=== PATIENT | male | born 1950 | race American Indian/Alaskan Native ===

== ENCOUNTER 2017-12-05 16:22 | Inpatient (IN) | payer MEDICARE ==
[2017-12-05 17:17] LABS: Basophils % (Auto) 0.1 % (0.0-1.8); Hematocrit 40.7 % (35.5-45.6); Lymphocytes # (Auto) 0.7 K/mm3 (1.2-5.4); Mean Corpuscular HGB Conc 32 % (32-34); Mean Corpuscular Hemoglobin 30 pg (28-32); Mean Corpuscular Volume 94 fl (84-94); Monocytes # (Auto) 1.1 K/mm3 (0.0-0.8); Monocytes % (Auto) 15.7 % (0.0-7.3); Red Blood Count 4.35 M/mm3 (3.65-5.03); Red Cell Distribution Width 17.8 % (13.2-15.2)
[2017-12-05 17:22] LABS: Platelet Count 83 K/mm3 (140-440)
[2017-12-05 17:52] LABS: Calcium 9.6 mg/dL (8.4-10.2)
--- NOTE | 2017-12-05 18:38 | Emergency Department Report ---
HPI - General Chief Complaint: Medical Clearance Time Seen by Provider: 12/05/17 17:06 - HPI HPI: 67-year-old male presents to the emergency department via EMS from his [facility]p at [facility] with the need for dialysis access port. The patient was recently here to the [facility] for CHF, volume overload and worsening renal failure. Apparently he has a paid search marketing strategist in [facility] that he has not seen in a while and cannot currently remember their name. The recommendation from nephrology was that the patient should start having dialysis and until that time use aggressive diuresis with Lasix. The family says that the patient wanted to take some time and decide whether or not he wanted to pursue dialysis. However the patient was discharged yesterday but the family stepped in and convinced him that he should get dialyzed for management of his CHF and kidney failure. ED Past Medical Hx - Past Medical History Hx Hypertension: Yes Hx Congestive Heart Failure: Yes Hx Diabetes: No Hx Liver Disease: Yes (hepatitis) Hx Kidney Stones: Yes (CKD) Hx Asthma: No Hx COPD: No Additional medical history: defibrillator - Surgical History Hx Pacemaker: Yes (2016) Hx Internal Defibrillator: Yes (2016) - Social History Smoking Status: Never Smoker Substance Use Type: None - Medications Home Medications: Home Medications Medication Instructions Recorded Confirmed Last Taken Type Carvedilol 12.5 mg PO BID 11/28/17 12/05/17 Unknown History Metolazone [Zaroxolyn] 2.5 mg PO BID 11/28/17 12/05/17 Unknown History hydrALAZINE [Apresoline TAB] 50 mg PO Q8HR 11/28/17 12/05/17 Unknown History Lasix 40 mg PO BID #60 12/03/17 12/05/17 Unknown Rx Potassium Chloride 10 meq PO DAILY #20 tablet.er 12/03/17 12/05/17 Unknown Rx Warfarin [Coumadin] 6 mg PO DAILY@1700 #60 tablet 12/03/17 12/05/17 Unknown Rx ED Review of Systems ROS: Stated complaint: NEEDS DIALYSIS PORT PUT IN Other details as noted in HPI Comment: All other systems reviewed and negative Constitutional: denies: chills, fever Eyes: denies: eye pain, eye discharge, vision change ENT: denies: ear pain, throat pain Respiratory: shortness of breath. denies: cough Cardiovascular: edema. denies: chest pain Gastrointestinal: denies: abdominal pain, nausea, diarrhea Genitourinary: denies: urgency, dysuria Musculoskeletal: denies: back pain, joint swelling, arthralgia Skin: denies: rash, lesions Neurological: denies: headache, weakness, paresthesias Physical Exam - Physical Exam Vital Signs: Vital Signs 12/05/17 16:36 Temperature 98 F Pulse Rate 70 Respiratory 20 Rate Blood Pressure 134/85 O2 Sat by Pulse 99 Oximetry Physical Exam: GENERAL: The patient is well-developed well-nourished. HENT: Normocephalic. Atraumatic. Patient has moist mucous membranes. EYES: Extraocular motions are intact. NECK: Supple. Trachea is midline. CHEST/LUNGS: Coarse breath sounds. No tachypnea or accessory muscle use. There is no respiratory distress noted. HEART/CARDIOVASCULAR: Regular. There is no tachycardia. There is no murmur. ABDOMEN: Abdomen is soft, nontender. Patient has normal bowel sounds. SKIN: Skin is warm and dry. NEURO: The patient is awake, alert, and oriented. The patient is cooperative. The patient has no focal neurologic deficits. The patient has normal speech. MUSCULOSKELETAL: There is no tenderness or deformity. There is no evidence of acute injury. ED Course Vital Signs 12/05/17 16:36 Temperature 98 F Pulse Rate 70 Respiratory 20 Rate Blood Pressure 134/85 O2 Sat by Pulse 99 Oximetry - Consultations Consultation #1: 12/05/17 18:48 Spoke with the paid search marketing strategist on-call, Dr. Neri, who will see the patient as a consult for the patient's renal failure and uremia. I spoke with the vascular surgeon on-call, Dr. Donovan, who is reversing the patient's warfarin, starting a heparin drip, once the patient nothing by mouth after midnight, and will see the patient tomorrow for possible permacath placement. ED Medical Decision Making - Lab Data Result diagrams: 12/05/17 17:03 12/05/17 17:03 - Radiology Data Radiology results: image reviewed interpreted by me: Chest x-ray shows some moderate cardiomegaly. No pleural effusions, pneumonia or pneumothorax. - Medical Decision Making The patient has presented to the emergency department to get a dialysis port placed. He recently was here for about a week for CHF, volume overload, renal failure and initiating dialysis was the recommendation of the nephrology service at that time. Patient does appear to have some uremia and renal failure with a BUN/creatinine 100 and a creatinine of 4. Chest x-ray does not currently show any signs of significant volume overload and does not show any other acute process. Vital signs stable including being afebrile. Nephrology was contacted and will see the patient as a consult tomorrow. Vascular surgery was contacted and has placed some orders to prepare the patient for possible permacath placement tomorrow. The patient has been accepted for admission by the hospitalist, Dr. Aguayo. - Differential Diagnosis CHF, uremia, pneumonia Critical Care Time: No Critical care attestation.: If time is entered above; I have spent that time in minutes in the direct care of this critically ill patient, excluding procedure time. ED Disposition Clinical Impression: ESRD (end stage renal disease), Uremia, SOB (shortness of breath) Disposition: OP ADMIT IP TO THIS HOSP Is pt being admited?: Yes Condition: Fair Referrals: PRIMARY CARE, [Primary Care Provider] - 3-5 Days Time of Disposition: 19:15
--- NOTE | 2017-12-05 18:40 | Event Note ---
Date: 12/05/17 67 year old male CHF with EF 10% with ESRD on coumadin who presents for dialysis initiation. NPO after MN Vit K IV. Heparin drip initiated. INR in AM.
--- NOTE | 2017-12-05 18:41 | History and Physical Report ---
History of Present Illness Chief complaint: I need dialysis History of present illness: 67 YO Male SNF Resident at [facility] with HTN, Systolic /Diastolic CHF EF 10%, Hepatitis, presents to ED for evaluation. Pt states that he has experienced generalized swelling, and shortness of breath over the past 1 month for which he was prescribed lasix. Pt states that symptoms have gotten progressively worse over the past 1 week. Pt was seen and evaluated and found to be a candidate for dialysis but was undecided regarding pursuing dialysis. Pt has since made up his mind and elects to start dialysis. Pt seen and evaluated in ED and found to have ESRD as well as CHF decompensation. Pt denies fever, chills, CP, Palpitations, NVD, Syncope, Trauma, BRBPR, Unintentional weight loss, night sweats, bone pain, productive cough, recent ill contacts, or BRBPR. Pt admitted to telemetry. Nephrology consulted in ED. IR consulted for permacath placement. Cardiology consulted in ED. Past History Past Medical History: heart failure, hepatitis, hypertension, renal failure Past Surgical History: Other (ICD/Pacemaker Placement) Social history: . denies: smoking, alcohol abuse, prescription drug abuse Family history: hypertension Medications and Allergies Allergies Allergy/AdvReac Type Severity Reaction Status Date / Time No Known Allergies Allergy Verified 11/26/17 22:21 Home Medications Medication Instructions Recorded Confirmed Last Taken Type Carvedilol 12.5 mg PO BID 11/28/17 12/05/17 Unknown History Metolazone [Zaroxolyn] 2.5 mg PO BID 11/28/17 12/05/17 Unknown History hydrALAZINE [Apresoline TAB] 50 mg PO Q8HR 11/28/17 12/05/17 Unknown History Lasix 40 mg PO BID #60 12/03/17 12/05/17 Unknown Rx Potassium Chloride 10 meq PO DAILY #20 tablet.er 12/03/17 12/05/17 Unknown Rx Warfarin [Coumadin] 6 mg PO DAILY@1700 #60 tablet 12/03/17 12/05/17 Unknown Rx Active Meds: Active Medications Heparin Sodium/Sodium Chloride (Heparin/ 0.45% Nacl-25,000 Unit/500 Ml) 25,000 unit in 500 mls @ 23.541 mls/hr IV TITRATE AJAY; Protocol Phytonadione 10 mg/ Sodium (Chloride) 51 mls @ 100 mls/hr IV ONCE ONE Stop: 12/05/17 19:07 Review of Systems Constitutional: no weight loss, no weight gain, no fever, no chills Ears, nose, mouth and throat: no ear pain, no ear discharge, no tinnitis, no decreased hearing, no nose pain, no nasal congestion, no nasal discharge Cardiovascular: edema, shortness of breath, no chest pain, no orthopnea, no palpitations, no high blood pressure Respiratory: no cough, no cough with sputum, no excessive sputum, no hemoptysis Gastrointestinal: no abdominal pain, no nausea, no vomiting, no diarrhea, no constipation Genitourinary Male: no hematuria, no flank pain, no discharge, no urinary frequency, no urinary hesitancy Rectal: no pain, no incontinence, no bleeding Musculoskeletal: no neck stiffness, no neck pain, no shooting arm pain, no arm numbness/tingling, no low back pain, no shooting leg pain Integumentary: no rash, no pruritis, no redness, no sores, no wounds, no jaundice Neurological: no transient paralysis, no paralysis, no weakness, no parathesias , no numbness, no tingling, no seizures Psychiatric: no anxiety, no memory loss, no change in sleep habits, no sleep disturbances, no insomnia, no hypersomnia Endocrine: no cold intolerance, no heat intolerance, no polyphagia, no excessive thirst, no polydipsia, no polyuria, no nocturia Hematologic/Lymphatic: no easy bruising, no easy bleeding, no lymphadenopathy, no lymphedema Allergic/Immunologic: no urticaria, no allergic rhinitis, no wheezing, no persistent infections Exam - Constitutional Vitals: Temp Pulse Resp BP Pulse Ox 98 F 70 22 106/63 91 12/05/17 16:36 12/05/17 18:15 12/05/17 18:15 12/05/17 18:15 12/05/17 17:16 General appearance: Present: mild distress - EENT Eyes: Present: PERRL ENT: hearing intact, clear oral mucosa - Neck Neck: Present: supple, normal ROM - Respiratory Respiratory: bilateral: diminished, rhonchi - Cardiovascular Heart Sounds: Present: S1 & S2. Absent: rub, click - Extremities Extremities: pulses symmetrical, No edema Extremity abnormal: edema Peripheral Pulses: within normal limits - Abdominal General gastrointestinal: Present: soft, non-tender, non-distended, normal bowel sounds Male genitourinary: Present: normal - Integumentary Integumentary: Present: clear, warm, dry - Musculoskeletal Musculoskeletal: generalized weakness - Psychiatric Psychiatric: appropriate mood/affect, intact judgment & insight - Neurologic Neurologic: CNII-XII intact, moves all extremities Results - Labs CBC & Chem 7: 12/05/17 17:03 12/05/17 17:03 Labs: Abnormal lab results 12/05/17 12/05/17 Range/Units 17:03 17:03 RDW 17.8 H (13.2-15.2) % Plt Count 83 L (140-440) K/mm3 Lymph % (Auto) 10.0 L (13.4-35.0) % Wilkes % (Auto) 15.7 H (0.0-7.3) % Lymph # 0.7 L (1.2-5.4) K/mm3 Wilkes # 1.1 H (0.0-0.8) K/mm3 Seg Neutrophils % 74.2 H (40.0-70.0) % Chloride 90.6 L (98-107) mmol/L BUN 106 H (9-20) mg/dL Creatinine 4.0 H (0.8-1.5) mg/dL Assessment and Plan - Patient Problems (1) CHF (congestive heart failure) Current Visit: Yes Status: Acute Qualifiers: Heart failure type: combined systolic and diastolic Heart failure chronicity: acute on chronic Qualified Code(s): I50.43 - Acute on chronic combined systolic (congestive) and diastolic (congestive) heart failure Plan to address problem: Admit to telemetry, strict I/O, monitor UOP q shift, daily weight, diuresis, supplemental oxygen, Chest x ray, afterload reduction, cardiology consulted in ED, (2) ESRD (end stage renal disease) Current Visit: Yes Status: Acute Plan to address problem: Nephrology consulted in ED, dialysis as per renal team. (3) Respiratory failure Current Visit: Yes Status: Acute Qualifiers: Chronicity: acute Respiratory failure complication: hypoxia Qualified Code(s): J96.01 - Acute respiratory failure with hypoxia Plan to address problem: supplemental oxygen, nebulizer therapy, Chest X ray, NIPPV as clinically indicated, diuresis, (4) HTN (hypertension) Current Visit: No Status: Chronic Qualifiers: Hypertension type: essential hypertension Qualified Code(s): I10 - Essential (primary) hypertension Plan to address problem: monitor bp q shift, continue medical management. (5) DVT prophylaxis Current Visit: Yes Status: Acute Plan to address problem: SCD to ble while in bed.
[2017-12-05] MEDS ORDERED: TYLENOL PO PRN (18:44)
[2017-12-05] MEDS ORDERED: SODIUM CHLORIDE FLUSH SYRINGE 10 ML IV PRN (18:44)
[2017-12-05] MEDS ORDERED: PROVENTIL IH PRN (18:44)
[2017-12-05] MEDS ORDERED: ZOFRAN IV PRN (18:44)
[2017-12-05 18:57] LABS: INR 2.2 (0.87-1.13)
[2017-12-05 18:58] LABS: Partial Thromboplastin Time 39.8 Sec. (24.2-36.6)
[2017-12-05] MEDS ORDERED: VITAMIN K (ADULT ONLY) 10 MG in NACL 0.9% 50 ML IV ONE (19:37)
[2017-12-05] MEDS ORDERED: LASIX PO SCH (20:00)
--- NOTE | 2017-12-05 20:17 | XRay Report ---
FINAL REPORT PROCEDURE: XR CHEST 1V AP TECHNIQUE: Chest radiograph anteroposterior view. CPT 75851 HISTORY: SOB COMPARISON: 11/26/2017 FINDINGS: Heart: Moderate cardiomegaly is again noted. Mediastinum/Vessels: Normal. Lungs/Pleural space: Normal. Bony thorax: No acute osseous abnormality. Life support devices: A bipolar left-sided cardiac device is identified. IMPRESSION: Cardiomegaly No acute pulmonary process.
[2017-12-05] MEDS ORDERED: LASIX ONE (21:38)
[2017-12-05] MEDS ORDERED: NON-FORMULARY (Lasix 40 MG) PO SCH (22:00)
[2017-12-05] MEDS ORDERED: ZAROXOLYN PO SCH (22:00)
[2017-12-05] MEDS ORDERED: NON-FORMULARY (Carvedilol 12.5 MG) PO SCH (22:00)
[2017-12-05] MEDS: HEPARIN/ 0.45% NACL-25,000 UNIT/500 ML 25,000 UNIT/500 ML BAG IV SCH (22:23)
[2017-12-06 05:12] LABS: INR 1.76 (0.87-1.13)
[2017-12-06 05:19] LABS: Heparin anti-factor XA < 0.10 U.I./ml (0.3-0.7)
[2017-12-06] MEDS: SODIUM CHLORIDE FLUSH SYRINGE 10 ML IV SCH ×3 (05:23→21:36)
[2017-12-06] MEDS: APRESOLINE PO SCH ×4 (05:23→21:31)
[2017-12-06] MEDS: COREG PO SCH ×3 (05:23→21:32)
[2017-12-06] MEDS: LASIX IV SCH ×2 (05:54→17:35)
[2017-12-06] MEDS ORDERED: HEPARIN 10,000 UNITS/10 ML IV ONE (06:12)
[2017-12-06] MEDS ORDERED: NON-FORMULARY (Potassium Chloride [Potassium Chloride] 10 MEQ) PO SCH (10:00)
[2017-12-06] MEDS: K-DUR PO SCH (10:20)
[2017-12-06] MEDS ORDERED: VITAMIN K (ADULT ONLY) 10 MG in NACL 0.9% 50 ML IV ONE (11:00)
--- NOTE | 2017-12-06 11:01 | Progress Note ---
Assessment and Plan Impression: * End stage renal disease, new --24hr crcl 11ml/min --SPEP shows a small M spike; SIFE pending; C4 low * Uremia * Cardiomyopathy --TTE - EF 10 to 15% * Chronic systolic heart failure * LV thrombus on chronic anticoagulation * Hypertension * Hepatitis C * Thrombocytopenia Plan: * Recommended starting dialysis during prior admission but patient declined. He is now agreeable * No emergent need for dialysis today * Vascular surgery following * Reversal of INR w/ plans for permcath insertion on Friday; on heparin gtt * Hepatitis panel on November 27 * CM consulted for outpatient dialysis clinic placement * Strict I/O * Avoid nephrotoxins * Subjective Date of service: 12/06/17 Interval history: Mr. Sinclair is a 67yo gentleman with stage V CKD, systolic heart faiulre EF 10% recently hospitalized for SOB. He was diuresed with IV lasix. Initiation of dialysis was recommended but patient declined. He was discharged to home on Dec 04 - BUN 106/SCr 4.3 at that time He represented to the ED overnight as he has decided to start dialysis. Presently, Mr. Sinclair denies nausea, vomiting, diarrhea. Appetite is poor. He denies SOB presently. Objective - Vital Signs Vital signs: Vital Signs - 12hr 12/05/17 12/05/17 12/06/17 23:00 23:52 00:30 Temperature 98.6 F Pulse Rate 77 70 Respiratory 18 Rate Respiratory 18 Rate [Bilateral Foot] Blood Pressure 131/76 O2 Sat by Pulse 97 Oximetry 12/06/17 12/06/17 12/06/17 03:22 05:54 07:47 Temperature 98.9 F 98.5 F Pulse Rate 70 70 71 Respiratory 18 20 Rate Respiratory Rate [Bilateral Foot] Blood Pressure 130/80 130/80 124/87 O2 Sat by Pulse 97 99 Oximetry 12/06/17 12/06/17 12/06/17 08:23 10:15 10:20 Temperature Pulse Rate 76 Respiratory Rate Respiratory Rate [Bilateral Foot] Blood Pressure 124/87 O2 Sat by Pulse 98 99 Oximetry - General Appearance General appearance: well-developed, well-nourished, other (NAD - breathing comfortably on room air) EENT: ATNC Respiratory: Present: Decreased Breath Sounds Cardiology: regular, S1S2 Gastrointestinal: normal, no tenderness, no distended Integumentary: no rash, warm and dry Neurologic: other (alert, responds appropriately to questions) Musculoskeletal: other (+edema) Psychiatric: cooperative - Lab 12/05/17 17:03 12/05/17 17:03 Most recent lab results Calcium 9.6 mg/dL (8.4-10.2) 12/05/17 17:03
--- NOTE | 2017-12-06 12:52 | Consultation ---
History of Present Illness Consult reason: congestive heart failure History of present illness: 67-year-old male presents to the emergency department via EMS from his [facility] at [facility] with the need for dialysis access port. The patient was recently here to the [facility] for CHF, volume overload and worsening renal failure. Apparently he has a flask carrier in [facility] that he has not seen in a while and cannot currently remember their name. The recommendation from nephrology was that the patient should start having dialysis and until that time use aggressive diuresis with Lasix. The family says that the patient wanted to take some time and decide whether or not he wanted to pursue dialysis. However the patient was discharged yesterday but the family stepped in and convinced him that he should get dialyzed for management of his CHF and kidney failure. Patient was seen by our group last week of November 2017.Echo showed EF of 10-15% with apical thrombus. Past History Past Medical History: heart failure, hepatitis, hypertension, renal failure Past Surgical History: Other (ICD/Pacemaker Placement) Social history: . denies: smoking, alcohol abuse, prescription drug abuse Family history: hypertension Medications and Allergies Allergies Allergy/AdvReac Type Severity Reaction Status Date / Time No Known Allergies Allergy Verified 11/26/17 22:21 Home Medications Medication Instructions Recorded Confirmed Last Taken Type Carvedilol 12.5 mg PO BID 11/28/17 12/05/17 Unknown History Metolazone [Zaroxolyn] 2.5 mg PO BID 11/28/17 12/05/17 Unknown History hydrALAZINE [Apresoline TAB] 50 mg PO Q8HR 11/28/17 12/05/17 Unknown History Lasix 40 mg PO BID #60 12/03/17 12/05/17 Unknown Rx Potassium Chloride 10 meq PO DAILY #20 tablet.er 12/03/17 12/05/17 Unknown Rx Warfarin [Coumadin] 6 mg PO DAILY@1700 #60 tablet 12/03/17 12/05/17 Unknown Rx Active Meds: Active Medications Acetaminophen (Tylenol) 650 mg PO Q4H PRN PRN Reason: Pain MILD(1-3)/Fever >100.5/MORALES Albuterol (Proventil) 2.5 mg IH Q4HRT PRN PRN Reason: Shortness Of Breath Carvedilol (Coreg) 12.5 mg PO BID [facility] Last Admin: 12/06/17 10:20 Dose: 12.5 mg Furosemide (Lasix) 40 mg IV 0600,1800 [facility] Last Admin: 12/06/17 05:54 Dose: 40 mg Hydralazine HCl (Apresoline) 50 mg PO Q8HR [facility] Last Admin: 12/06/17 05:54 Dose: 50 mg Heparin Sodium/Sodium Chloride (Heparin/ 0.45% Nacl-25,000 Unit/500 Ml) 25,000 unit in 500 mls @ 20 mls/hr IV TITRATE [facility]; Protocol Last Titration: 12/06/17 06:20 Dose: 1,200 units/hr, 24 mls/hr Ondansetron HCl (Zofran) 4 mg IV Q8H PRN PRN Reason: Nausea And Vomiting Potassium Chloride (K-Dur) 10 meq PO QDAY [facility] Last Admin: 12/06/17 10:20 Dose: 10 meq Sodium Chloride (Sodium Chloride Flush Syringe 10 Ml) 10 ml IV PRN PRN PRN Reason: LINE FLUSH Sodium Chloride (Sodium Chloride Flush Syringe 10 Ml) 10 ml IV BID [facility] Last Admin: 12/06/17 10:21 Dose: Not Given Review of Systems Constitutional: fatigue, weakness Cardiovascular: edema, shortness of breath, dyspnea on exertion, no chest pain Gastrointestinal: no abdominal pain Physical Examination Vital Signs Temp Pulse Resp BP Pulse Ox 98 F 70 20 134/85 99 12/05/17 16:36 12/05/17 16:36 12/05/17 16:36 12/05/17 16:36 12/05/17 16:36 General appearance: no acute distress HEENT: Positive: PERRL, EOMI Cardiac: Positive: Reg Rate and Rhythm, S1/S2, S3 Lungs: Positive: Decreased Breath Sounds Neuro: Positive: Grossly Intact Extremities: Present: +1 Edema Results 12/05/17 17:03 12/05/17 17:03 Coagulation 12/05/17 12/06/17 Range/Units 18:38 04:05 PT 25.9 H 21.6 H (12.2-14.9) Sec. INR 2.20 H 1.76 H (0.87-1.13) APTT 39.8 H (24.2-36.6) Sec. CBC 12/05/17 Range/Units 17:03 WBC 6.9 (4.5-11.0) K/mm3 RBC 4.35 (3.65-5.03) M/mm3 Hgb 13.0 (11.8-15.2) gm/dl Hct 40.7 (35.5-45.6) % Plt Count 83 L (140-440) K/mm3 Lymph # 0.7 L (1.2-5.4) K/mm3 Sanders # 1.1 H (0.0-0.8) K/mm3 Eos # 0.0 (0.0-0.4) K/mm3 Baso # 0.0 (0.0-0.1) K/mm3 Comprehensive Metabolic Panel 12/05/17 Range/Units 17:03 Sodium 138 (137-145) mmol/L Potassium 4.3 (3.6-5.0) mmol/L Chloride 90.6 L (98-107) mmol/L Carbon Dioxide 28 (22-30) mmol/L BUN 106 H (9-20) mg/dL Creatinine 4.0 H (0.8-1.5) mg/dL Glucose 86 (75-100) mg/dL Calcium 9.6 (8.4-10.2) mg/dL - Imaging and Cardiology Echo: report reviewed Assessment and Plan Patient needs to have HD for fluid overload due to HFrEF. In the mean time IV diuretics. Patient had echo 10 days ago, no need to repeat. . - Patient Problems (1) CHF (congestive heart failure) Current Visit: Yes Status: Acute Qualifiers: Heart failure type: systolic Heart failure chronicity: acute on chronic Qualified Code(s): I50.23 - Acute on chronic systolic (congestive) heart failure (2) ESRD (end stage renal disease) Current Visit: Yes Status: Acute
--- NOTE | 2017-12-06 12:59 | Consultation ---
History of Present Illness - Reason for Consult Consult date: 12/06/17 Dialysis - History of Present Illness 67 YO Male SNF Resident at [facility] with HTN, Systolic /Diastolic CHF EF 10%, Hepatitis, presents to ED for evaluation. Pt states that he has experienced generalized swelling, and shortness of breath over the past 1 month for which he was prescribed lasix. Pt states that symptoms have gotten progressively worse over the past 1 week. Pt was seen and evaluated and found to be a candidate for dialysis but was undecided regarding pursuing dialysis. Pt has since made up his mind and elects to start dialysis. Pt seen and evaluated in ED and found to have ESRD as well as CHF decompensation. Pt denies fever, chills, CP, Palpitations, NVD, Syncope, Trauma, BRBPR, Unintentional weight loss, night sweats, bone pain, productive cough, recent ill contacts, or BRBPR. Pt admitted to telemetry. Nephrology consulted in ED. IR consulted for permacath placement. Cardiology consulted in ED. Patient reports she is not actively short of breath and is eating without any distress. Discussed with Dr. Neri and we believe the patient can have PermCath placement on Friday. Patient's INR is elevated due to chronic anticoagulation. Initiated heparin drip and provided vitamin K IV. INR still elevated, and therefore patient would benefit from placement on Friday. Past History Past Medical History: heart failure, hepatitis, hypertension, renal failure Past Surgical History: Other (ICD/Pacemaker Placement) Social history: . denies: smoking, alcohol abuse, prescription drug abuse Family history: hypertension Medications and Allergies Allergies Allergy/AdvReac Type Severity Reaction Status Date / Time No Known Allergies Allergy Verified 11/26/17 22:21 Home Medications Medication Instructions Recorded Confirmed Last Taken Type Carvedilol 12.5 mg PO BID 11/28/17 12/05/17 Unknown History Metolazone [Zaroxolyn] 2.5 mg PO BID 11/28/17 12/05/17 Unknown History hydrALAZINE [Apresoline TAB] 50 mg PO Q8HR 11/28/17 12/05/17 Unknown History Lasix 40 mg PO BID #60 12/03/17 12/05/17 Unknown Rx Potassium Chloride 10 meq PO DAILY #20 tablet.er 08/01/18 08/03/18 Unknown Rx Warfarin [Coumadin] 6 mg PO DAILY@1700 #60 tablet 12/03/17 12/05/17 Unknown Rx Active Meds: Active Medications Acetaminophen (Tylenol) 650 mg PO Q4H PRN PRN Reason: Pain MILD(1-3)/Fever >100.5/MORALES Albuterol (Proventil) 2.5 mg IH Q4HRT PRN PRN Reason: Shortness Of Breath Carvedilol (Coreg) 12.5 mg PO BID [facility] Last Admin: 12/06/17 10:20 Dose: 12.5 mg Furosemide (Lasix) 40 mg IV 0600,1800 [facility] Last Admin: 12/06/17 05:54 Dose: 40 mg Hydralazine HCl (Apresoline) 50 mg PO Q8HR [facility] Last Admin: 12/06/17 05:54 Dose: 50 mg Heparin Sodium/Sodium Chloride (Heparin/ 0.45% Nacl-25,000 Unit/500 Ml) 25,000 unit in 500 mls @ 20 mls/hr IV TITRATE [facility]; Protocol Last Titration: 12/06/17 06:20 Dose: 1,200 units/hr, 24 mls/hr Ondansetron HCl (Zofran) 4 mg IV Q8H PRN PRN Reason: Nausea And Vomiting Potassium Chloride (K-Dur) 10 meq PO QDAY [facility] Last Admin: 12/06/17 10:20 Dose: 10 meq Sodium Chloride (Sodium Chloride Flush Syringe 10 Ml) 10 ml IV PRN PRN PRN Reason: LINE FLUSH Sodium Chloride (Sodium Chloride Flush Syringe 10 Ml) 10 ml IV BID [facility] Last Admin: 12/06/17 10:21 Dose: Not Given Review of Systems All systems: negative (see HPI) Exam - Constitutional Vitals: Temp Pulse Resp BP Pulse Ox 98.5 F 76 20 124/87 99 12/06/17 07:47 12/06/17 10:20 12/06/17 07:47 12/06/17 10:20 12/06/17 10:15 General appearance: Present: no acute distress - EENT Eyes: Present: EOM intact ENT: hearing intact - Respiratory Respiratory effort: normal - Psychiatric Psychiatric: appropriate mood/affect, cooperative Results - Labs CBC & Chem 7: 12/05/17 17:03 12/05/17 17:03 Labs: Abnormal lab results 12/05/17 12/05/17 12/05/17 Range/Units 17:03 17:03 18:38 RDW 17.8 H (13.2-15.2) % Plt Count 83 L (140-440) K/mm3 Lymph % (Auto) 10.0 L (13.4-35.0) % [place] % (Auto) 15.7 H (0.0-7.3) % Lymph # 0.7 L (1.2-5.4) K/mm3 [place] # 1.1 H (0.0-0.8) K/mm3 Seg Neutrophils % 74.2 H (40.0-70.0) % PT 25.9 H (12.2-14.9) Sec. INR 2.20 H (0.87-1.13) APTT 39.8 H (24.2-36.6) Sec. Heparin Anti-Xa Level (0.3-0.7) U.I./ml Chloride 90.6 L (98-107) mmol/L BUN 106 H (9-20) mg/dL Creatinine 4.0 H (0.8-1.5) mg/dL POC Glucose (70-105) 12/05/17 12/06/17 Range/Units 22:30 04:05 RDW (13.2-15.2) % Plt Count (140-440) K/mm3 Lymph % (Auto) (13.4-35.0) % [place] % (Auto) (0.0-7.3) % Lymph # (1.2-5.4) K/mm3 [place] # (0.0-0.8) K/mm3 Seg Neutrophils % (40.0-70.0) % PT 21.6 H (12.2-14.9) Sec. INR 1.76 H (0.87-1.13) APTT (24.2-36.6) Sec. Heparin Anti-Xa Level < 0.10 L (0.3-0.7) U.I./ml Chloride (98-107) mmol/L BUN (9-20) mg/dL Creatinine (0.8-1.5) mg/dL POC Glucose 138 H (70-105) Assessment and Plan 67-year-old male with multiple medical issues including congestive heart failure , liver disease, and end-stage renal disease. Previously he has declined hemodialysis. He now wishes to have hemodialysis. Was provided IV vitamin K and started on heparin drip. INR still greater than 1.5. Provided another dose of vitamin K. Discussed catheter placement with patient. Patient understands. Patient patient nothing by mouth for placement on Friday. Restore diet.
--- NOTE | 2017-12-06 14:12 | Progress Note ---
Assessment and Plan Assessment and plan: Uremia due to ESRD ESRD To start dialysis Vasc surgery consulted for dialysis catheter placement. Nephrology following. Acute on chronic Systolic CHF cardiomyopathy s/p AICD placement History of left ventricular thrombus on anticoagulation with Coumadin. On Heparin drip since INR<2 Hepatitis Thrombocytopenia Full code status History Interval history: Shortness of breath Hospitalist Physical - Physical exam Narrative exam: Gen:Not in acute distress, HEENT:Normocephalic atraumatic, Neck: Supple, no JVD Lungs:clear to auscultation bilaterally, no rhonchi, no wheeze Heart:S1 and S2 reg, no murmurs, rubs or gallop Abd: Soft, non tender, non distended, normal bowel sounds Ext: No edema, clubbing or cyanosis Neuro:Awake,alert,oriented x 3, no focal signs Psych:normal mood - Constitutional Vitals: Temp Pulse Resp BP Pulse Ox 98.5 F 76 20 124/87 99 12/06/17 07:47 12/06/17 10:20 12/06/17 07:47 12/06/17 10:20 12/06/17 10:15 Results - Labs CBC & Chem 7: 12/05/17 17:03 12/05/17 17:03 Labs: Laboratory Last Values WBC 6.9 K/mm3 (4.5-11.0) 12/05/17 17:03 RBC 4.35 M/mm3 (3.65-5.03) 12/05/17 17:03 Hgb 13.0 gm/dl (11.8-15.2) 12/05/17 17:03 Hct 40.7 % (35.5-45.6) 12/05/17 17:03 MCV 94 fl (84-94) 12/05/17 17:03 MCH 30 pg (28-32) 12/05/17 17:03 MCHC 32 % (32-34) 12/05/17 17:03 RDW 17.8 % (13.2-15.2) H 12/05/17 17:03 Plt Count 83 K/mm3 (140-440) L 12/05/17 17:03 Lymph % (Auto) 10.0 % (13.4-35.0) L 12/05/17 17:03 [place] % (Auto) 15.7 % (0.0-7.3) H 12/05/17 17:03 Eos % (Auto) 0.0 % (0.0-4.3) 12/05/17 17:03 Baso % (Auto) 0.1 % (0.0-1.8) 12/05/17 17:03 Lymph # 0.7 K/mm3 (1.2-5.4) L 12/05/17 17:03 [place] # 1.1 K/mm3 (0.0-0.8) H 12/05/17 17:03 Eos # 0.0 K/mm3 (0.0-0.4) 12/05/17 17:03 Baso # 0.0 K/mm3 (0.0-0.1) 12/05/17 17:03 Seg Neutrophils % 74.2 % (40.0-70.0) H 12/05/17 17:03 Seg Neutrophils # 5.1 K/mm3 (1.8-7.7) 12/05/17 17:03 PT 21.6 Sec. (12.2-14.9) H 12/06/17 04:05 INR 1.76 (0.87-1.13) H 12/06/17 04:05 APTT 39.8 Sec. (24.2-36.6) H 12/05/17 18:38 Heparin Anti-Xa Level < 0.10 U.I./ml (0.3-0.7) L 12/06/17 04:05 Sodium 138 mmol/L (137-145) 12/05/17 17:03 Potassium 4.3 mmol/L (3.6-5.0) 12/05/17 17:03 Chloride 90.6 mmol/L (98-107) L 12/05/17 17:03 Carbon Dioxide 28 mmol/L (22-30) 12/05/17 17:03 Anion Gap 24 mmol/L 12/05/17 17:03 BUN 106 mg/dL (9-20) H 12/05/17 17:03 Creatinine 4.0 mg/dL (0.8-1.5) H 12/05/17 17:03 Estimated GFR 18 ml/min 12/05/17 17:03 BUN/Creatinine Ratio 27 % 12/05/17 17:03 Glucose 86 mg/dL (75-100) 12/05/17 17:03 POC Glucose 73 (70-105) 12/06/17 11:59 Calcium 9.6 mg/dL (8.4-10.2) 12/05/17 17:03
[2017-12-06] MEDS: HEPARIN/ 0.45% NACL-25,000 UNIT/500 ML 25,000 UNIT/500 ML BAG IV SCH ×2 (15:25→17:36)
[2017-12-06] MEDS ORDERED: COUMADIN PO SCH (17:00)
[2017-12-06] MEDS: MIRALAX 3350 PO PRN (17:35)
[2017-12-07] MEDS: LASIX IV SCH ×2 (06:23→17:21)
[2017-12-07] MEDS: APRESOLINE PO SCH ×3 (06:23→21:45)
[2017-12-07 07:51] LABS: Hematocrit 34.9 % (35.5-45.6); Hemoglobin 11.5 gm/dl (11.8-15.2); Mean Corpuscular HGB Conc 33 % (32-34); Mean Corpuscular Hemoglobin 30 pg (28-32); Mean Corpuscular Volume 91 fl (84-94); Platelet Count 103 K/mm3 (140-440); Red Blood Count 3.82 M/mm3 (3.65-5.03); Red Cell Distribution Width 17.4 % (13.2-15.2)
[2017-12-07 07:58] LABS: INR 1.49 (0.87-1.13)
[2017-12-07 07:59] LABS: Heparin anti-factor XA 0.15 U.I./ml (0.3-0.7)
[2017-12-07] MEDS: HEPARIN/ 0.45% NACL-25,000 UNIT/500 ML 25,000 UNIT/500 ML BAG IV SCH ×3 (08:21→15:48)
[2017-12-07] MEDS: COREG PO SCH ×2 (09:24→21:45)
[2017-12-07] MEDS: K-DUR PO SCH (09:25)
[2017-12-07] MEDS: SODIUM CHLORIDE FLUSH SYRINGE 10 ML IV SCH ×2 (09:26→21:46)
[2017-12-07] MEDS ORDERED: NACL 0.9% 100 ML IV PRN (10:50)
--- NOTE | 2017-12-07 10:53 | Progress Note ---
Assessment and Plan Impression: * End stage renal disease, new --24hr crcl 11ml/min --SPEP shows a small M spike; SIFE pending; C4 low * Uremia * Cardiomyopathy --TTE - EF 10 to 15% * Chronic systolic heart failure * LV thrombus on chronic anticoagulation * Hypertension * Hepatitis C * Thrombocytopenia Plan: * Permcath placement tomorrow * Hemodialysis to follow * Reversal of INR per vascular surgery; on heparin gtt * Hepatitis panel on November 27 * CM consulted for outpatient dialysis clinic placement * Renal diet * Strict I/O * Avoid nephrotoxins * Subjective Date of service: 12/07/17 Interval history: Appetite is poor. Denies SOB. Objective - Vital Signs Vital signs: Vital Signs - 12hr 12/07/17 12/07/17 12/07/17 00:25 04:54 06:23 Temperature 98.0 F 97.6 F Pulse Rate 70 69 69 Pulse Rate [ Apical] Respiratory 20 20 Rate Blood Pressure 94/48 98/59 98/59 O2 Sat by Pulse 96 92 Oximetry 12/07/17 12/07/17 12/07/17 07:54 09:24 10:00 Temperature 98.3 F Pulse Rate 69 78 Pulse Rate [ 93 H Apical] Respiratory 16 17 Rate Blood Pressure 132/78 132/78 O2 Sat by Pulse 100 Oximetry - General Appearance General appearance: well-developed, well-nourished EENT: ATNC Respiratory: Present: Decreased Breath Sounds Cardiology: regular, S1S2 Gastrointestinal: normal, no tenderness, no distended Integumentary: warm and dry Neurologic: no focal deficit, alert and oriented x3 Musculoskeletal: other (+edema) Psychiatric: cooperative - Lab 12/07/17 06:27 12/07/17 06:27 Most recent lab results Calcium 9.0 mg/dL (8.4-10.2) 12/07/17 06:27
--- NOTE | 2017-12-07 11:23 | Progress Note ---
Assessment and Plan - Patient Problems (1) CHF (congestive heart failure) Current Visit: Yes Status: Acute Qualifiers: Heart failure type: systolic Heart failure chronicity: acute on chronic Qualified Code(s): I50.23 - Acute on chronic systolic (congestive) heart failure (2) ESRD (end stage renal disease) Current Visit: Yes Status: Acute Plan to address problem: Waiting for vascath for HD. Subjective Date of service: 12/07/17 Interval history: No chest pains or short of breath . In bed mostly. Objective Vital Signs Temp Pulse Pulse Resp Resp BP Pulse Ox 12/07/17 10:00 93 H 17 12/07/17 09:24 78 132/78 12/07/17 07:54 98.3 F 69 16 132/78 100 12/07/17 06:23 69 98/59 12/07/17 04:54 97.6 F 69 20 98/59 92 12/07/17 00:25 98.0 F 70 20 94/48 96 12/06/17 22:00 112 H 100 H 18 12/06/17 21:32 74 117/70 12/06/17 21:31 74 117/70 12/06/17 20:39 18 12/06/17 20:19 98.3 F 74 20 117/70 98 12/06/17 11:51 98.0 F 69 18 128/79 97 - Physical Examination HEENT: Positive: PERRL, EOMI Cardiac: Positive: Regular Rate, S3 Lungs: Positive: Decreased Breath Sounds Neuro: Positive: Grossly Intact Extremities: Present: +1 Edema - Labs and Meds Coagulation 12/07/17 Range/Units 06:27 PT 18.9 H (12.2-14.9) Sec. INR 1.49 H (0.87-1.13) CBC 12/07/17 Range/Units 06:27 WBC 6.6 (4.5-11.0) K/mm3 RBC 3.82 (3.65-5.03) M/mm3 Hgb 11.5 L (11.8-15.2) gm/dl Hct 34.9 L (35.5-45.6) % Plt Count 103 L (140-440) K/mm3 Comprehensive Metabolic Panel 12/07/17 Range/Units 06:27 Sodium 140 (137-145) mmol/L Potassium 4.0 (3.6-5.0) mmol/L Chloride 90.9 L (98-107) mmol/L Carbon Dioxide 27 (22-30) mmol/L BUN 106 H (9-20) mg/dL Creatinine 3.7 H (0.8-1.5) mg/dL Glucose 79 (75-100) mg/dL Calcium 9.0 (8.4-10.2) mg/dL - Imaging and Cardiology Echo: report reviewed - Telemetry EKG Rhythm: Paced
--- NOTE | 2017-12-07 12:21 | Progress Note ---
Assessment and Plan Assessment and plan: Uremia due to ESRD ESRD To start dialysis Vasc surgery consulted for dialysis catheter placement. For Permacath tomorrow Nephrology following. Acute on chronic Systolic CHF cardiomyopathy s/p AICD placement History of left ventricular thrombus on anticoagulation with Coumadin. On Heparin drip since INR<2 Hepatitis Thrombocytopenia Full code status History Interval history: Shortness of breath, No chest pain Hospitalist Physical - Physical exam Narrative exam: Gen:Not in acute distress, HEENT:Normocephalic atraumatic, Neck: Supple, no JVD Lungs:clear to auscultation bilaterally, no rhonchi, no wheeze Heart:S1 and S2 reg, no murmurs, rubs or gallop Abd: Soft, non tender, non distended, normal bowel sounds Ext: No edema, clubbing or cyanosis Neuro:Awake,alert,oriented x 3, no focal signs Psych:normal mood - Constitutional Vitals: Temp Pulse Resp BP Pulse Ox 98.3 F 93 H 17 132/78 100 12/07/17 07:54 12/07/17 10:00 12/07/17 10:00 12/07/17 09:24 12/07/17 07:54 Results - Labs CBC & Chem 7: 12/07/17 06:27 12/07/17 06:27 Labs: Laboratory Last Values WBC 6.6 K/mm3 (4.5-11.0) 12/07/17 06:27 RBC 3.82 M/mm3 (3.65-5.03) 12/07/17 06:27 Hgb 11.5 gm/dl (11.8-15.2) L 12/07/17 06:27 Hct 34.9 % (35.5-45.6) L 12/07/17 06:27 MCV 91 fl (84-94) 12/07/17 06:27 MCH 30 pg (28-32) 12/07/17 06:27 MCHC 33 % (32-34) 12/07/17 06:27 RDW 17.4 % (13.2-15.2) H 12/07/17 06:27 Plt Count 103 K/mm3 (140-440) L 12/07/17 06:27 Lymph % (Auto) 10.0 % (13.4-35.0) L 12/05/17 17:03 [place] % (Auto) 15.7 % (0.0-7.3) H 12/05/17 17:03 Eos % (Auto) 0.0 % (0.0-4.3) 12/05/17 17:03 Baso % (Auto) 0.1 % (0.0-1.8) 12/05/17 17:03 Lymph # 0.7 K/mm3 (1.2-5.4) L 12/05/17 17:03 [place] # 1.1 K/mm3 (0.0-0.8) H 12/05/17 17:03 Eos # 0.0 K/mm3 (0.0-0.4) 12/05/17 17:03 Baso # 0.0 K/mm3 (0.0-0.1) 12/05/17 17:03 Seg Neutrophils % 74.2 % (40.0-70.0) H 12/05/17 17:03 Seg Neutrophils # 5.1 K/mm3 (1.8-7.7) 12/05/17 17:03 PT 18.9 Sec. (12.2-14.9) H 12/07/17 06:27 INR 1.49 (0.87-1.13) H 12/07/17 06:27 APTT 39.8 Sec. (24.2-36.6) H 12/05/17 18:38 Heparin Anti-Xa Level 0.15 U.I./ml (0.3-0.7) L 12/07/17 06:27 Sodium 140 mmol/L (137-145) 12/07/17 06:27 Potassium 4.0 mmol/L (3.6-5.0) 12/07/17 06:27 Chloride 90.9 mmol/L (98-107) L 12/07/17 06:27 Carbon Dioxide 27 mmol/L (22-30) 12/07/17 06:27 Anion Gap 26 mmol/L 12/07/17 06:27 BUN 106 mg/dL (9-20) H 12/07/17 06:27 Creatinine 3.7 mg/dL (0.8-1.5) H 12/07/17 06:27 Estimated GFR 20 ml/min 12/07/17 06:27 BUN/Creatinine Ratio 29 % 12/07/17 06:27 Glucose 79 mg/dL (75-100) 12/07/17 06:27 POC Glucose 81 (70-105) 12/07/17 07:10 Calcium 9.0 mg/dL (8.4-10.2) 12/07/17 06:27
--- NOTE | 2017-12-07 12:22 | Event Note ---
Date: 12/07/17 Reviewed labs. INR less than 1.5 Plan for permcath tomorrow. NPO after MN.
[2017-12-08] MEDS: HEPARIN/ 0.45% NACL-25,000 UNIT/500 ML 25,000 UNIT/500 ML BAG IV SCH ×3 (04:28→21:46)
[2017-12-08] MEDS: APRESOLINE PO SCH ×3 (06:26→21:46)
[2017-12-08] MEDS: LASIX IV SCH ×2 (06:26→17:27)
[2017-12-08 07:41] LABS: Hematocrit 36.6 % (35.5-45.6); Hemoglobin 11.7 gm/dl (11.8-15.2); Mean Corpuscular HGB Conc 32 % (32-34); Mean Corpuscular Hemoglobin 30 pg (28-32); Mean Corpuscular Volume 92 fl (84-94); Platelet Count 128 K/mm3 (140-440); Red Blood Count 3.96 M/mm3 (3.65-5.03); Red Cell Distribution Width 17.9 % (13.2-15.2)
[2017-12-08 07:51] LABS: Calcium 9.1 mg/dL (8.4-10.2)
[2017-12-08 07:52] LABS: INR 1.59 (0.87-1.13)
[2017-12-08] MEDS ORDERED: HEPARIN 10,000 UNITS/10 ML ONE (10:13)
[2017-12-08] MEDS ORDERED: HEPARIN/NS 5000 UNIT/500ML(CATH LAB) 500 ML IR ONE (10:13)
[2017-12-08] MEDS ORDERED: VERSED ONE (10:13)
[2017-12-08] MEDS ORDERED: SUBLIMAZE ONE (10:13)
[2017-12-08] MEDS ORDERED: ANCEF/STERILE WATER 2 GM/20 ML 2 GM/20 ML SYRINGE IV ONE (10:14)
[2017-12-08] MEDS ORDERED: XYLOCAINE 2% INFILTRATI ONE (10:14)
[2017-12-08] MEDS ORDERED: NACL 0.9% 250ML 250 ML ONE (10:15)
--- NOTE | 2017-12-08 10:44 | Progress Note ---
Assessment and Plan Impression: * End stage renal disease, new --24hr crcl 11ml/min --SPEP shows a small M spike; SIFE pending; C4 low * Uremia * Cardiomyopathy --TTE - EF 10 to 15% * Chronic systolic heart failure * LV thrombus on chronic anticoagulation * Hypertension * Hepatitis C * Thrombocytopenia Plan: * s/p Permcath placement * Hemodialysis today, and daily for next 3 days then q MWF * Reversal of INR per vascular surgery; on heparin gtt * CM consulted for outpatient dialysis clinic placement * Renal diet * Strict I/O * Avoid nephrotoxins Subjective Date of service: 12/08/17 Principal diagnosis: esrd Interval history: resting well in bed today Objective - Exam Narrative Exam: General appearance: well-developed, well-nourished EENT: ATNC Respiratory: Present: Decreased Breath Sounds Cardiology: regular, S1S2 Gastrointestinal: normal, no tenderness, no distended Integumentary: warm and dry Neurologic: no focal deficit, alert and oriented x3 Musculoskeletal: other (+edema) Psychiatric: cooperative - Vital Signs Vital signs: Vital Signs - 12hr 12/07/17 12/08/17 12/08/17 23:38 05:37 07:26 Temperature 98.2 F 98.1 F 98.4 F Pulse Rate 71 71 61 Respiratory 20 20 18 Rate Blood Pressure 105/59 111/63 133/70 O2 Sat by Pulse 95 93 98 Oximetry - Lab 12/08/17 07:13 12/08/17 07:13 Most recent lab results Calcium 9.1 mg/dL (8.4-10.2) 12/08/17 07:13
--- NOTE | 2017-12-08 12:21 | Operative Report ---
Operative Report Operative Report: Exam: Ultrasound and fluoroscopic guided placement of tunneled hemodialysis catheter Clinical indication: Patient with end-stage renal disease requiring dialysis access Date: 12/08/2017 Procedure: Following an explanation of the risks, benefits and alternatives; written informed consent was obtained. The patient was brought to the angiographic suite and placed in supine position on the examination table. Ultrasound evaluation of the neck demonstrated an enlarged right internal jugular vein. The patient's right neck and chest wall were prepped and draped in usual sterile fashion. 1% lidocaine was used for anesthesia. Under ultrasound guidance, the right internal jugular vein was cannulated with a 7 cm 18-gauge needle. A 0.035 guidewire was advanced centrally. The needle was removed and a 4 Mongolian vertebral catheter advanced over the guidewire. Together the guidewire and catheter were manipulated into the IVC to document intravenous positioning and for anchoring. An appropriate catheter exit site was chosen along the lateral right chest wall. 1% lidocaine was used for anesthesia at the catheter exit site and along the tunnel tract. A Bard 23 cm glidepath tunneled hemodialysis catheter was then tunneled antegrade from the catheter exit site to the venotomy site. Following serial dilation over the guidewire under fluoroscopy, a 15 Mongolian peel -away sheath was placed over the guidewire under fluoroscopy. The trocar and guidewire were removed and the catheter advanced through the sheath. There appears to be some degree of stenosis within the distal SVC and the catheter would not advance passes stenosis. The guidewire and plastic stiffener were then advanced through the dialysis catheter. The guidewire was then advanced more distally allowing the catheter to track over the guidewire into the proximal right atrium. The guidewire and stiffener were removed. Both ports flushed and aspirated easily and were then locked with appropriate volumes of heparin. The venotomy was closed using 4-0 Vicryl suture and Dermabond. Dermabond was also applied to the catheter exit site. The patient tolerated the procedure well. There were no immediate post procedure complications. Conscious sedation was performed under the guidance of radiologic nursing. Continuous cardiopulmonary monitoring was utilized. Impression: 1) Ultrasound and fluoroscopic guided placement of tunneled hemodialysis catheter via the right internal jugular vein. 2) Patient has an indwelling left chest wall pacemaker. Would suspect that the patient has occluded his left internal jugular vein and innominate vein given the size of the right internal jugular vein.
--- NOTE | 2017-12-08 13:41 | Progress Note ---
Assessment and Plan Assessment and plan: Uremia due to ESRD ESRD To start dialysis Vasc surgery placed for dialysis catheter today To start dialysis today Nephrology following. Acute on chronic Systolic CHF cardiomyopathy s/p AICD placement History of left ventricular thrombus on anticoagulation with Coumadin. On Heparin drip since INR<2 Hepatitis Thrombocytopenia Acute gouty arthritis 1st toe. Start Allopurinol 100mg daily. Cannot give NSAID or Colchicine because of Renal function X Ray right foot Full code status History Interval history: Shortness of breath, No chest pain pain right big toe Hospitalist Physical - Physical exam Narrative exam: Gen: Not in acute distress, HEENT:Normocephalic atraumatic, Neck: Supple, no JVD Lungs:clear to auscultation bilaterally, no rhonchi, no wheeze Heart:S1 and S2 reg, no murmurs, rubs or gallop Abd: Soft, non tender, non distended, normal bowel sounds Ext: No clubbing or cyanosis, right 1st toe tender, swollen right foot Neuro:Awake,alert,oriented x 3, no focal signs Psych:normal mood - Constitutional Vitals: Temp Pulse Resp BP Pulse Ox 98.3 F 67 16 115/73 99 12/08/17 11:52 12/08/17 11:52 12/08/17 11:52 12/08/17 11:52 12/08/17 11:52 General appearance: Present: no acute distress Results - Labs CBC & Chem 7: 12/08/17 07:13 12/08/17 07:13 Labs: Laboratory Last Values WBC 6.4 K/mm3 (4.5-11.0) 12/08/17 07:13 RBC 3.96 M/mm3 (3.65-5.03) 12/08/17 07:13 Hgb 11.7 gm/dl (11.8-15.2) L 12/08/17 07:13 Hct 36.6 % (35.5-45.6) 12/08/17 07:13 MCV 92 fl (84-94) 12/08/17 07:13 MCH 30 pg (28-32) 12/08/17 07:13 MCHC 32 % (32-34) 12/08/17 07:13 RDW 17.9 % (13.2-15.2) H 12/08/17 07:13 Plt Count 128 K/mm3 (140-440) L 12/08/17 07:13 Lymph % (Auto) 10.0 % (13.4-35.0) L 12/05/17 17:03 [place] % (Auto) 15.7 % (0.0-7.3) H 12/05/17 17:03 Eos % (Auto) 0.0 % (0.0-4.3) 12/05/17 17:03 Baso % (Auto) 0.1 % (0.0-1.8) 12/05/17 17:03 Lymph # 0.7 K/mm3 (1.2-5.4) L 12/05/17 17:03 [place] # 1.1 K/mm3 (0.0-0.8) H 12/05/17 17:03 Eos # 0.0 K/mm3 (0.0-0.4) 12/05/17 17:03 Baso # 0.0 K/mm3 (0.0-0.1) 12/05/17 17:03 Seg Neutrophils % 74.2 % (40.0-70.0) H 12/05/17 17:03 Seg Neutrophils # 5.1 K/mm3 (1.8-7.7) 12/05/17 17:03 PT 19.9 Sec. (12.2-14.9) H 12/08/17 07:13 INR 1.59 (0.87-1.13) H 12/08/17 07:13 APTT 39.8 Sec. (24.2-36.6) H 12/05/17 18:38 Heparin Anti-Xa Level 0.17 U.I./ml (0.3-0.7) L 12/08/17 07:13 Sodium 138 mmol/L (137-145) 12/08/17 07:13 Potassium 4.1 mmol/L (3.6-5.0) 12/08/17 07:13 Chloride 92.8 mmol/L (98-107) L 12/08/17 07:13 Carbon Dioxide 27 mmol/L (22-30) 12/08/17 07:13 Anion Gap 22 mmol/L 12/08/17 07:13 BUN 104 mg/dL (9-20) H 12/08/17 07:13 Creatinine 3.5 mg/dL (0.8-1.5) H 12/08/17 07:13 Estimated GFR 21 ml/min 12/08/17 07:13 BUN/Creatinine Ratio 30 % 12/08/17 07:13 Glucose 84 mg/dL (75-100) 12/08/17 07:13 POC Glucose 76 (70-105) 12/08/17 12:02 Uric Acid 12.6 mg/dL (3.5-7.6) H 12/08/17 07:13 Calcium 9.1 mg/dL (8.4-10.2) 12/08/17 07:13
--- NOTE | 2017-12-08 14:22 | Progress Note ---
Assessment and Plan Recommend resuming coumadin when okay per vascular. Cont coreg. No ACEI/ARB at this time due to renal insufficiency. Volume optimization per nephrology. The patient has been seen in conjunction with Dr. Espinal who agrees with the assessment and plan of care. - Patient Problems (1) Acute combined systolic and diastolic heart failure Current Visit: Yes Status: Acute (2) LV (left ventricular) mural thrombus Current Visit: Yes Status: Acute (3) History of cardiomyopathy Current Visit: Yes Status: Chronic (4) Automatic implantable cardioverter-defibrillator in situ Current Visit: Yes Status: Chronic (5) Acute kidney injury superimposed on chronic kidney disease Current Visit: Yes Status: Acute (6) HTN (hypertension) Current Visit: Yes Status: Chronic (7) Elevated troponin Current Visit: Yes Status: Acute (8) Thrombocytopenia Current Visit: Yes Status: Acute (9) Hepatitis C Current Visit: Yes Status: Chronic Subjective Date of service: 12/08/17 Principal diagnosis: esrd Interval history: pt resting comfortably in bed, no current cardiac complaints. s/p tunneled hemodialysis catheter placement today. Objective Last Vital Signs Temp 98.3 F 12/08/17 11:52 Pulse 67 12/08/17 11:52 Resp 16 12/08/17 11:52 BP 115/73 12/08/17 11:52 Pulse Ox 99 12/08/17 11:52 - Physical Examination General: No Apparent Distress HEENT: Positive: PERRL, EOMI Neck: Positive: neck supple, trachea midline Cardiac: Positive: Reg Rate and Rhythm, S1/S2 Lungs: Positive: Decreased Breath Sounds Neuro: Positive: Grossly Intact Extremities: Present: +1 Edema - Labs and Meds Coagulation 12/08/17 Range/Units 07:13 PT 19.9 H (12.2-14.9) Sec. INR 1.59 H (0.87-1.13) CBC 12/08/17 Range/Units 07:13 WBC 6.4 (4.5-11.0) K/mm3 RBC 3.96 (3.65-5.03) M/mm3 Hgb 11.7 L (11.8-15.2) gm/dl Hct 36.6 (35.5-45.6) % Plt Count 128 L (140-440) K/mm3 Comprehensive Metabolic Panel 12/08/17 Range/Units 07:13 Sodium 138 (137-145) mmol/L Potassium 4.1 (3.6-5.0) mmol/L Chloride 92.8 L (98-107) mmol/L Carbon Dioxide 27 (22-30) mmol/L BUN 104 H (9-20) mg/dL Creatinine 3.5 H (0.8-1.5) mg/dL Glucose 84 (75-100) mg/dL Calcium 9.1 (8.4-10.2) mg/dL - Imaging and Cardiology Echo: report reviewed
--- NOTE | 2017-12-08 15:09 | Vascular Lab Report ---
Upper extremity vein mapping Reason for exam: Preoperative evaluation for hemodialysis access Comments: On the right, the cephalic vein is not usable from wrist to shoulder. The basilic vein is usable only in the upper arm. The brachial and radial arteries are patent. The radial artery is of normal caliber. On the left, the cephalic vein is not usable from wrist to shoulder. The basilic vein is usable in the upper arm only. The brachial and radial arteries are patent. The radial artery is of normal caliber. Impression: Neither of the cephalic veins are suitable for use as AV access sites. Both basilic veins are suitable for use as AV access sites only above the elbows. No arterial issues were identified.
[2017-12-08] MEDS: ZYLOPRIM PO SCH (15:56)
[2017-12-08] MEDS: K-DUR PO SCH (15:56)
[2017-12-08] MEDS: COREG PO SCH ×2 (15:56→21:45)
[2017-12-08] MEDS: SODIUM CHLORIDE FLUSH SYRINGE 10 ML IV SCH ×2 (15:57→21:49)
--- NOTE | 2017-12-08 16:09 | XRay Report ---
FINAL REPORT PROCEDURE: XR FOOT 3+V RT TECHNIQUE: RIGHT foot radiographs, AP, lateral, and oblique views. CPT 44124 HISTORY: Pain 1st and 2nd toes on right, with discharge COMPARISON: No prior studies are available for comparison. FINDINGS: No evidence of dislocation. There is irregularity of the distal phalanx of the great toe although suboptimally seen due to positioning. I cannot exclude a fracture or possibly an accessory ossicle at the interphalangeal joint of the great toe. There is moderate osteoarthritic change in the MTP joint of the great toe. There are periarticular erosions visualize medially and mild soft tissue swelling. I cannot exclude superimposed gout large calcaneal spurs are present. Skin thickening appears to be present anterior aspect of the foot with increased density also seen in the subcutaneous adipose tissue. No radiopaque foreign bodies are identified. Mild diffuse osteoarthritic changes visualized in the midportion of the foot.. IMPRESSION: Osteoarthritic changes are present as described. Periarticular erosion MTP joint of the great toe. I cannot exclude superimposed gout/inflammatory arthritis. Irregularity distal phalanx of the great toe as described. I cannot exclude a fracture. The toe is suboptimally positioned. If there is concern for fracture plain films of the toe would be suggested. Correlation with physical exam recommended. . Large calcaneal spurs are visualized. Skin thickening visualized anteriorly as described. No radiopaque foreign bodies are identified. I cannot exclude cellulitis.
[2017-12-08] MEDS ORDERED: NACL 0.9 (PRIMING MACHINE ONLY DIALYSIS) MC ONE (16:41)
[2017-12-08 20:26] LABS: Hepatitis A Antibody IgM Non-Reactive (NonReactive); Hepatitis B Core IgM Non-Reactive (NonReactive); Hepatitis B Surface Antigen Non-Reactive (Negative); Hepatitis C Virus Antibody Reactive (NonReactive)
[2017-12-09] MEDS: MIRALAX 3350 PO PRN (05:18)
[2017-12-09] MEDS: HEPARIN/ 0.45% NACL-25,000 UNIT/500 ML 25,000 UNIT/500 ML BAG IV SCH ×4 (05:18→20:45)
[2017-12-09] MEDS: LASIX IV SCH ×2 (05:18→18:40)
[2017-12-09 05:59] LABS: Hematocrit 36.1 % (35.5-45.6); Hemoglobin 11.5 gm/dl (11.8-15.2)
[2017-12-09 06:09] LABS: INR 1.72 (0.87-1.13)
[2017-12-09 06:15] LABS: Heparin anti-factor XA < 0.10 U.I./ml (0.3-0.7)
[2017-12-09 06:24] LABS: Calcium 9.2 mg/dL (8.4-10.2)
[2017-12-09] MEDS: APRESOLINE PO SCH ×2 (06:24→18:41)
[2017-12-09] MEDS ORDERED: HEPARIN 10,000 UNITS/10 ML IV ONE (06:42)
--- NOTE | 2017-12-09 08:27 | Progress Note ---
Assessment and Plan Assessment and plan: --Uremia due to ESRD --ESRD; hemodialysis initiated Nephrology following --Acute on chronic Systolic CHF --cardiomyopathy s/p AICD placement --History of left ventricular thrombus on anticoagulation with Coumadin. On Heparin drip since INR<2 --Hepatitis --Thrombocytopenia --Acute gouty arthritis 1st toe. Start Allopurinol 100mg daily. Cannot give NSAID or Colchicine because of Renal function X Ray right foot; possible gout/possible fracture great toe Check x-ray right great toe, orthopedic consult --Cellulitis Lt toe/Toe nail infection empiric antibiotics with clindamycin Wound care, ortho/podiatry consult as needed --Full code status History Interval history: Patient seen and examined medical records reviewed No new events reported by the nursing Patient complains of right toe pain and swelling X-ray, suspicious fracture Alert awake oriented 3 Vital signs reviewed stable Hospitalist Physical - Constitutional Vitals: Temp Pulse Resp BP Pulse Ox 99.2 F 80 18 124/77 93 12/09/17 04:12 12/09/17 06:24 12/09/17 04:12 12/09/17 06:24 12/09/17 04:12 General appearance: Present: no acute distress, well-nourished - EENT Eyes: Present: PERRL, EOM intact - Neck Neck: Present: supple, normal ROM - Respiratory Respiratory effort: normal Respiratory: bilateral: diminished, negative: rales, rhonchi, wheezing - Cardiovascular Rhythm: regular Heart Sounds: Present: S1 & S2 - Extremities Extremities: no ischemia, abnormal (right great toe swelling and tenderness, possible nail bed infection) - Abdominal General gastrointestinal: soft, non-tender, non-distended, normal bowel sounds - Integumentary Integumentary: Present: clear, warm - Psychiatric Psychiatric: appropriate mood/affect, cooperative - Neurologic Neurologic: CNII-XII intact, moves all extremities Results - Labs CBC & Chem 7: 12/10/17 05:19 12/10/17 05:19 Labs: Laboratory Last Values WBC 6.4 K/mm3 (4.5-11.0) 12/08/17 07:13 RBC 3.96 M/mm3 (3.65-5.03) 12/08/17 07:13 Hgb 11.5 gm/dl (11.8-15.2) L 12/09/17 05:01 Hct 36.1 % (35.5-45.6) 12/09/17 05:01 MCV 92 fl (84-94) 12/08/17 07:13 MCH 30 pg (28-32) 12/08/17 07:13 MCHC 32 % (32-34) 12/08/17 07:13 RDW 17.9 % (13.2-15.2) H 12/08/17 07:13 Plt Count 138 K/mm3 (140-440) L 12/09/17 05:01 Lymph % (Auto) 10.0 % (13.4-35.0) L 12/05/17 17:03 Casey % (Auto) 15.7 % (0.0-7.3) H 12/05/17 17:03 Eos % (Auto) 0.0 % (0.0-4.3) 12/05/17 17:03 Baso % (Auto) 0.1 % (0.0-1.8) 12/05/17 17:03 Lymph # 0.7 K/mm3 (1.2-5.4) L 12/05/17 17:03 Casey # 1.1 K/mm3 (0.0-0.8) H 12/05/17 17:03 Eos # 0.0 K/mm3 (0.0-0.4) 12/05/17 17:03 Baso # 0.0 K/mm3 (0.0-0.1) 12/05/17 17:03 Seg Neutrophils % 74.2 % (40.0-70.0) H 12/05/17 17:03 Seg Neutrophils # 5.1 K/mm3 (1.8-7.7) 12/05/17 17:03 PT 21.2 Sec. (12.2-14.9) H 12/09/17 05:01 INR 1.72 (0.87-1.13) H 12/09/17 05:01 APTT 39.8 Sec. (24.2-36.6) H 12/05/17 18:38 Heparin Anti-Xa Level < 0.10 U.I./ml (0.3-0.7) L 12/09/17 05:01 Sodium 138 mmol/L (137-145) 12/09/17 05:01 Potassium 4.1 mmol/L (3.6-5.0) 12/09/17 05:01 Chloride 94.6 mmol/L (98-107) L 12/09/17 05:01 Carbon Dioxide 27 mmol/L (22-30) 12/09/17 05:01 Anion Gap 21 mmol/L 12/09/17 05:01 BUN 77 mg/dL (9-20) H 12/09/17 05:01 Creatinine 3.3 mg/dL (0.8-1.5) H 12/09/17 05:01 Estimated GFR 23 ml/min 12/09/17 05:01 BUN/Creatinine Ratio 23 % 12/09/17 05:01 Glucose 76 mg/dL (75-100) 12/09/17 05:01 POC Glucose 72 (70-105) 12/09/17 06:39 Uric Acid 12.6 mg/dL (3.5-7.6) H 12/08/17 07:13 Calcium 9.2 mg/dL (8.4-10.2) 12/09/17 05:01 Hepatitis A IgM Ab Non-reactive (NonReactive) 12/08/17 19:28 Hep Bs Antigen Non-reactive (Negative) 12/08/17 19:28 Hep B Core IgM Ab Non-reactive (NonReactive) 12/08/17 19:28 Hepatitis C Antibody Reactive (NonReactive) A 12/08/17 19:28
--- NOTE | 2017-12-09 09:16 | Progress Note ---
Assessment and Plan Impression: * End stage renal disease, new --24hr crcl 11ml/min --SPEP shows a small M spike; SIFE pending; C4 low * Uremia * Cardiomyopathy --TTE - EF 10 to 15% * Chronic systolic heart failure * LV thrombus on chronic anticoagulation * Hypertension * Hepatitis C * Thrombocytopenia Plan: * s/p Permcath placement * Hemodialysis today, and then q MWF * anticoagulation per cards * CM consulted for outpatient dialysis clinic placement * Renal diet * Strict I/O * Avoid nephrotoxins Subjective Date of service: 12/09/17 Principal diagnosis: esrd Interval history: resting well in bed today Objective - Exam Narrative Exam: General appearance: well-developed, well-nourished EENT: ATNC Respiratory: Present: Decreased Breath Sounds Cardiology: regular, S1S2 Gastrointestinal: normal, no tenderness, no distended Integumentary: warm and dry Neurologic: no focal deficit, alert and oriented x3 Musculoskeletal: other (+edema) Psychiatric: cooperative - Vital Signs Vital signs: Vital Signs - 12hr 12/08/17 12/08/17 12/09/17 21:45 21:46 00:06 Temperature Pulse Rate 71 71 44 L Respiratory Rate Respiratory Rate [Bilateral Leg] Blood Pressure 123/61 123/61 Blood Pressure [Left] O2 Sat by Pulse 93 Oximetry 12/09/17 12/09/17 12/09/17 00:07 00:49 03:21 Temperature 97.6 F Pulse Rate 68 69 Respiratory 18 Rate Respiratory 20 Rate [Bilateral Leg] Blood Pressure 123/71 Blood Pressure 123/71 [Left] O2 Sat by Pulse 99 99 Oximetry 12/09/17 12/09/17 12/09/17 03:42 04:12 06:24 Temperature 99.2 F Pulse Rate 69 80 80 Respiratory 18 Rate Respiratory Rate [Bilateral Leg] Blood Pressure 124/77 124/77 Blood Pressure [Left] O2 Sat by Pulse 93 Oximetry 12/09/17 12/09/17 07:58 08:00 Temperature 98.7 F Pulse Rate 74 Respiratory 20 Rate Respiratory Rate [Bilateral Leg] Blood Pressure 95/64 Blood Pressure [Left] O2 Sat by Pulse 100 Oximetry - Lab 12/09/17 05:01 12/09/17 05:01 Most recent lab results Calcium 9.2 mg/dL (8.4-10.2) 12/09/17 05:01
[2017-12-09] MEDS: COREG PO SCH (09:40)
[2017-12-09] MEDS: K-DUR PO SCH (09:40)
[2017-12-09] MEDS: ZYLOPRIM PO SCH (09:42)
--- NOTE | 2017-12-09 10:34 | Progress Note ---
Assessment and Plan Okay to resume coumadin per vascular. Will restart. Continue heparin gtt until tx INR of 2-3 is achieved. Cont coreg. Consider addition of ACEI/ARB if okay per nephrology. Volume optimization per nephrology. Per nephro, hemodialysis today, and then q MWF. The patient has been seen in conjunction with Dr. Espinal who agrees with the assessment and plan of care. - Patient Problems (1) Acute combined systolic and diastolic heart failure Current Visit: Yes Status: Acute (2) LV (left ventricular) mural thrombus Current Visit: Yes Status: Acute (3) History of cardiomyopathy Current Visit: Yes Status: Chronic (4) Automatic implantable cardioverter-defibrillator in situ Current Visit: Yes Status: Chronic (5) Acute kidney injury superimposed on chronic kidney disease Current Visit: Yes Status: Acute (6) HTN (hypertension) Current Visit: Yes Status: Chronic (7) Elevated troponin Current Visit: Yes Status: Acute (8) Thrombocytopenia Current Visit: Yes Status: Acute (9) Hepatitis C Current Visit: Yes Status: Chronic Subjective Date of service: 12/09/17 Principal diagnosis: esrd Interval history: pt resting comfortably in bed, no current cardiac complaints. c/o RLE gout pain. s/p tunneled hemodialysis catheter placement yesterday. heparin gtt infusing. Objective Last Vital Signs Temp 98.7 F 12/09/17 08:00 Pulse 70 12/09/17 09:40 Resp 20 12/09/17 07:58 BP 95/64 12/09/17 07:58 Pulse Ox 100 12/09/17 07:58 - Physical Examination General: No Apparent Distress HEENT: Positive: PERRL, EOMI Neck: Positive: neck supple, trachea midline Cardiac: Positive: Reg Rate and Rhythm, S1/S2 Lungs: Positive: Decreased Breath Sounds Neuro: Positive: Grossly Intact Extremities: Present: +1 Edema - Labs and Meds Coagulation 12/09/17 Range/Units 05:01 PT 21.2 H (12.2-14.9) Sec. INR 1.72 H (0.87-1.13) CBC 12/09/17 Range/Units 05:01 Hgb 11.5 L (11.8-15.2) gm/dl Hct 36.1 (35.5-45.6) % Plt Count 138 L (140-440) K/mm3 Comprehensive Metabolic Panel 12/09/17 Range/Units 05:01 Sodium 138 (137-145) mmol/L Potassium 4.1 (3.6-5.0) mmol/L Chloride 94.6 L (98-107) mmol/L Carbon Dioxide 27 (22-30) mmol/L BUN 77 H (9-20) mg/dL Creatinine 3.3 H (0.8-1.5) mg/dL Glucose 76 (75-100) mg/dL Calcium 9.2 (8.4-10.2) mg/dL - Imaging and Cardiology Echo: report reviewed
--- NOTE | 2017-12-09 11:57 | Progress Note ---
Assessment and Plan This pt has new onset ESRD on HD. S/p FLY[facility] PC, POD 1. Okay to resume Coumadin from a vascular surgery stand point. Vein mapping reviewed. BUE Basilic veins may be adequate for AVF creation. This could be arranged as an outpt once the pt's condition is medically optimized. Subjective Date of service: 12/09/17 Principal diagnosis: esrd Interval history: Pt awake without complaint at present. Objective - Constitutional Vitals: Vital Signs - 12hr 12/09/17 12/09/17 12/09/17 00:06 00:07 00:49 Temperature 97.6 F Pulse Rate 44 L 68 69 Respiratory 18 Rate Respiratory Rate [Bilateral Leg] Blood Pressure 123/71 Blood Pressure 123/71 [Left] O2 Sat by Pulse 93 99 99 Oximetry 12/09/17 12/09/17 12/09/17 03:21 03:42 04:12 Temperature 99.2 F Pulse Rate 69 80 Respiratory 18 Rate Respiratory 20 Rate [Bilateral Leg] Blood Pressure 124/77 Blood Pressure [Left] O2 Sat by Pulse 93 Oximetry 12/09/17 12/09/17 12/09/17 06:24 07:58 08:00 Temperature 98.7 F Pulse Rate 80 74 Respiratory 20 Rate Respiratory Rate [Bilateral Leg] Blood Pressure 124/77 95/64 Blood Pressure [Left] O2 Sat by Pulse 100 Oximetry 12/09/17 09:40 Temperature Pulse Rate 70 Respiratory Rate Respiratory Rate [Bilateral Leg] Blood Pressure Blood Pressure [Left] O2 Sat by Pulse Oximetry General appearance: Present: no acute distress - EENT Eyes: EOM intact ENT: hearing intact - Respiratory Respiratory effort: normal (unlabored at rest) Extremities: normal temperature, abnormal (IV in the left AC fossa) - Neurologic Neurologic: no focal deficits - Psychiatric Psychiatric: cooperative - Labs CBC & Chem 7: 12/09/17 05:01 12/09/17 05:01 Labs: Abnormal lab results 12/08/17 12/08/17 12/08/17 Range/Units 19:28 19:28 21:18 Hgb (11.8-15.2) gm/dl Plt Count (140-440) K/mm3 PT (12.2-14.9) Sec. INR (0.87-1.13) Heparin Anti-Xa Level 0.15 L (0.3-0.7) U.I./ml Chloride (98-107) mmol/L BUN (9-20) mg/dL Creatinine (0.8-1.5) mg/dL POC Glucose 117 H (70-105) Hepatitis C Antibody Reactive A (NonReactive) 12/09/17 12/09/17 12/09/17 Range/Units 05:01 05:01 05:01 Hgb 11.5 L (11.8-15.2) gm/dl Plt Count 138 L (140-440) K/mm3 PT 21.2 H (12.2-14.9) Sec. INR 1.72 H (0.87-1.13) Heparin Anti-Xa Level < 0.10 L (0.3-0.7) U.I./ml Chloride 94.6 L (98-107) mmol/L BUN 77 H (9-20) mg/dL Creatinine 3.3 H (0.8-1.5) mg/dL POC Glucose (70-105) Hepatitis C Antibody (NonReactive)
[2017-12-09] MEDS: HEPARIN IV PRN (14:46)
[2017-12-09] MEDS: HEPARIN 10,000 UNITS/10 ML IV PRN (14:47)
[2017-12-09] MEDS: COUMADIN PO SCH (18:39)
[2017-12-09] MEDS: CLEOCIN 600 MG/50 mL 600 MG/50 ML BAG IV SCH (22:35)
[2017-12-10] MEDS: COREG PO SCH ×2 (01:50→09:33)
[2017-12-10] MEDS: SODIUM CHLORIDE FLUSH SYRINGE 10 ML IV SCH ×3 (01:55→09:43)
[2017-12-10] MEDS: APRESOLINE PO SCH ×3 (01:55→13:18)
[2017-12-10] MEDS: HEPARIN/ 0.45% NACL-25,000 UNIT/500 ML 25,000 UNIT/500 ML BAG IV SCH ×2 (05:13→06:14)
[2017-12-10] MEDS: LASIX IV SCH ×2 (06:13→17:00)
[2017-12-10] MEDS: CLEOCIN 600 MG/50 mL 600 MG/50 ML BAG IV SCH ×2 (06:15→13:17)
[2017-12-10 06:28] LABS: Basophils % (Auto) 0.1 % (0.0-1.8); Eosinophils % (Auto) 0.3 % (0.0-4.3); Hematocrit 34.9 % (35.5-45.6); Hemoglobin 11.4 gm/dl (11.8-15.2); Lymphocytes # (Auto) 0.8 K/mm3 (1.2-5.4); Lymphocytes % (Auto) 11.5 % (13.4-35.0); Mean Corpuscular HGB Conc 33 % (32-34); Mean Corpuscular Hemoglobin 30 pg (28-32); Mean Corpuscular Volume 91 fl (84-94); Monocytes # (Auto) 1.1 K/mm3 (0.0-0.8); Monocytes % (Auto) 15.4 % (0.0-7.3); Platelet Count 163 K/mm3 (140-440); Red Blood Count 3.83 M/mm3 (3.65-5.03); Red Cell Distribution Width 17.4 % (13.2-15.2)
[2017-12-10 06:43] LABS: Calcium 9.2 mg/dL (8.4-10.2)
[2017-12-10 07:26] LABS: INR 1.77 (0.87-1.13)
[2017-12-10 07:27] LABS: Heparin anti-factor XA 0.29 U.I./ml (0.3-0.7)
--- NOTE | 2017-12-10 08:09 | XRay Report ---
RIGHT TOES, 3 VIEWS History: X-ray right great toe. Abnormal right foot x-ray. Findings: Compared to the right foot films dated 12/08/17. This exam is very limited with poor separation of the toes. Osteopenia is evident. Advanced osteoarthritic changes are identified at the first metatarsophalangeal joint. On the AP image, there is suggestion of a bony erosion with an overhanging edge consistent with gout. No obvious fracture, bony destruction or bone lesion is identified. Impression: Limited exam with poor separation of the toes. Osteoarthritis. Findings consistent with gout at the first metatarsophalangeal joint. If further evaluation is needed, MRI with contrast is recommended.
[2017-12-10] MEDS: K-DUR PO SCH (09:42)
[2017-12-10] MEDS: ZYLOPRIM PO SCH (09:42)
--- NOTE | 2017-12-10 10:34 | Progress Note ---
Assessment and Plan Pt appears to be nearing euvolemia. Continue heparin gtt until tx INR of 2-3 is achieved. Cont coreg. No ACEI/ARB at this time in setting of renal insufficiency and low normal BPs. Volume optimization per nephrology. Per nephro, hemodialysis today, and then q MWF. Nothing further to add from cardiac perspective at this time. Will follow on as needed basis. Recommend pt follow up with his primary servicenow administrator developer, Dr. Hale, within 3-5 days of hospital discharge. Pt verbalizes understanding. The patient has been seen in conjunction with Dr. Daniella Kerr who agrees with the assessment and plan of care. - Patient Problems (1) Acute combined systolic and diastolic heart failure Current Visit: Yes Status: Acute (2) LV (left ventricular) mural thrombus Current Visit: Yes Status: Acute (3) History of cardiomyopathy Current Visit: Yes Status: Chronic (4) Automatic implantable cardioverter-defibrillator in situ Current Visit: Yes Status: Chronic (5) Acute kidney injury superimposed on chronic kidney disease Current Visit: Yes Status: Acute (6) HTN (hypertension) Current Visit: Yes Status: Chronic (7) Elevated troponin Current Visit: Yes Status: Acute (8) Thrombocytopenia Current Visit: Yes Status: Acute (9) Hepatitis C Current Visit: Yes Status: Chronic Subjective Date of service: 12/10/17 Principal diagnosis: esrd Interval history: pt resting comfortably in bed, no current cardiac complaints. heparin gtt infusing. Objective Last Vital Signs Temp 98.4 F 12/10/17 08:18 Pulse 69 12/10/17 08:18 Resp 20 12/10/17 08:18 BP 98/63 12/10/17 08:18 Pulse Ox 97 12/10/17 08:18 - Physical Examination General: No Apparent Distress HEENT: Positive: PERRL, EOMI Neck: Positive: neck supple, trachea midline Cardiac: Positive: Reg Rate and Rhythm, S1/S2 Lungs: Positive: Decreased Breath Sounds Neuro: Positive: Grossly Intact Extremities: Present: +1 Edema - Labs and Meds Coagulation 12/10/17 Range/Units 05:19 PT 21.7 H (12.2-14.9) Sec. INR 1.77 H (0.87-1.13) CBC 12/10/17 Range/Units 05:19 WBC 7.1 (4.5-11.0) K/mm3 RBC 3.83 (3.65-5.03) M/mm3 Hgb 11.4 L (11.8-15.2) gm/dl Hct 34.9 L (35.5-45.6) % Plt Count 163 (140-440) K/mm3 Lymph # 0.8 L (1.2-5.4) K/mm3 Sullivan # 1.1 H (0.0-0.8) K/mm3 Eos # 0.0 (0.0-0.4) K/mm3 Baso # 0.0 (0.0-0.1) K/mm3 Comprehensive Metabolic Panel 12/10/17 Range/Units 05:19 Sodium 135 L (137-145) mmol/L Potassium 4.5 (3.6-5.0) mmol/L Chloride 93.0 L (98-107) mmol/L Carbon Dioxide 24 (22-30) mmol/L BUN 63 H (9-20) mg/dL Creatinine 3.1 H (0.8-1.5) mg/dL Glucose 74 L (75-100) mg/dL Calcium 9.2 (8.4-10.2) mg/dL - Imaging and Cardiology Echo: report reviewed
--- NOTE | 2017-12-10 10:58 | Progress Note ---
Assessment and Plan Assessment and plan: --Acute gouty arthritis 1st toe. Start Allopurinol 100mg daily. Cannot give NSAID or Colchicine because of Renal function X Ray right foot; possible gout/possible fracture great toe Check x-ray right great toe, orthopedic consult --Cellulitis Lt toe/Toe nail infection empiric antibiotics with clindamycin Wound care, ortho/podiatry consult as needed --Uremia due to ESRD --ESRD; hemodialysis initiated Nephrology following --Acute on chronic Systolic CHF --cardiomyopathy s/p AICD placement --History of left ventricular thrombus on anticoagulation with Coumadin. On Heparin drip since INR<2 --Hepatitis --Thrombocytopenia --Full code status History Interval history: Patient Seen and evaluated medical records reviewed Right foot pain significantly improved Mild discharge from left great toe nail bed Patient feels better no new complaints Alert awake oriented 3 Vital signs stable Hospitalist Physical - Constitutional Vitals: Temp Pulse Resp BP Pulse Ox 98.4 F 69 20 98/63 97 12/10/17 08:18 12/10/17 08:18 12/10/17 08:18 12/10/17 08:18 12/10/17 08:18 General appearance: Present: no acute distress, well-nourished - EENT Eyes: Present: PERRL, EOM intact - Neck Neck: Present: supple, normal ROM - Respiratory Respiratory effort: normal Respiratory: bilateral: diminished, negative: rales, rhonchi, wheezing - Cardiovascular Rhythm: regular Heart Sounds: Present: S1 & S2 - Extremities Extremities: no ischemia, abnormal (left great toe nail bed infection) Extremity abnormal: other (gout right great toe) - Abdominal General gastrointestinal: soft, non-tender, non-distended, normal bowel sounds - Integumentary Integumentary: Present: clear, warm - Psychiatric Psychiatric: appropriate mood/affect, cooperative - Neurologic Neurologic: CNII-XII intact, moves all extremities Results - Labs CBC & Chem 7: 12/10/17 05:19 12/10/17 05:19 Labs: Laboratory Last Values WBC 7.1 K/mm3 (4.5-11.0) 12/10/17 05:19 RBC 3.83 M/mm3 (3.65-5.03) 12/10/17 05:19 Hgb 11.4 gm/dl (11.8-15.2) L 12/10/17 05:19 Hct 34.9 % (35.5-45.6) L 12/10/17 05:19 MCV 91 fl (84-94) 12/10/17 05:19 MCH 30 pg (28-32) 12/10/17 05:19 MCHC 33 % (32-34) 12/10/17 05:19 RDW 17.4 % (13.2-15.2) H 12/10/17 05:19 Plt Count 163 K/mm3 (140-440) 12/10/17 05:19 Lymph % (Auto) 11.5 % (13.4-35.0) L 12/10/17 05:19 Frontier % (Auto) 15.4 % (0.0-7.3) H 12/10/17 05:19 Eos % (Auto) 0.3 % (0.0-4.3) 12/10/17 05:19 Baso % (Auto) 0.1 % (0.0-1.8) 12/10/17 05:19 Lymph # 0.8 K/mm3 (1.2-5.4) L 12/10/17 05:19 Frontier # 1.1 K/mm3 (0.0-0.8) H 12/10/17 05:19 Eos # 0.0 K/mm3 (0.0-0.4) 12/10/17 05:19 Baso # 0.0 K/mm3 (0.0-0.1) 12/10/17 05:19 Seg Neutrophils % 72.7 % (40.0-70.0) H 12/10/17 05:19 Seg Neutrophils # 5.2 K/mm3 (1.8-7.7) 12/10/17 05:19 PT 21.7 Sec. (12.2-14.9) H 12/10/17 05:19 INR 1.77 (0.87-1.13) H 12/10/17 05:19 APTT 39.8 Sec. (24.2-36.6) H 12/05/17 18:38 Heparin Anti-Xa Level 0.29 U.I./ml (0.3-0.7) L 12/10/17 05:19 Sodium 135 mmol/L (137-145) L 12/10/17 05:19 Potassium 4.5 mmol/L (3.6-5.0) 12/10/17 05:19 Chloride 93.0 mmol/L (98-107) L 12/10/17 05:19 Carbon Dioxide 24 mmol/L (22-30) 12/10/17 05:19 Anion Gap 23 mmol/L 12/10/17 05:19 BUN 63 mg/dL (9-20) H 12/10/17 05:19 Creatinine 3.1 mg/dL (0.8-1.5) H 12/10/17 05:19 Estimated GFR 24 ml/min 12/10/17 05:19 BUN/Creatinine Ratio 20 % 12/10/17 05:19 Glucose 74 mg/dL (75-100) L 12/10/17 05:19 POC Glucose 92 (70-105) 12/10/17 07:21 Uric Acid 12.6 mg/dL (3.5-7.6) H 12/08/17 07:13 Calcium 9.2 mg/dL (8.4-10.2) 12/10/17 05:19 Hepatitis A IgM Ab Non-reactive (NonReactive) 12/08/17 19:28 Hep Bs Antigen Non-reactive (Negative) 12/08/17 19:28 Hep B Core IgM Ab Non-reactive (NonReactive) 12/08/17 19:28 Hepatitis C Antibody Reactive (NonReactive) A 12/08/17 19:28
[2017-12-10] MEDS: DELTASONE PO SCH (13:17)
[2017-12-10] MEDS: COUMADIN PO SCH (16:59)
[2017-12-10] MEDS ORDERED: NACL 0.9 (PRIMING MACHINE ONLY DIALYSIS) MC ONE ×2 (17:47→20:21)
[2017-12-10] MEDS: HEPARIN IV PRN (20:00)
[2017-12-11] MEDS: COREG PO SCH ×3 (00:07→22:24)
[2017-12-11] MEDS: APRESOLINE PO SCH ×4 (00:07→22:23)
[2017-12-11] MEDS: SODIUM CHLORIDE FLUSH SYRINGE 10 ML IV SCH ×3 (00:08→22:23)
[2017-12-11] MEDS: CLEOCIN 600 MG/50 mL 600 MG/50 ML BAG IV SCH ×4 (00:08→22:24)
[2017-12-11] MEDS: HEPARIN/ 0.45% NACL-25,000 UNIT/500 ML 25,000 UNIT/500 ML BAG IV SCH (05:25)
[2017-12-11] MEDS: LASIX IV SCH ×2 (05:34→17:11)
[2017-12-11 07:10] LABS: Hemoglobin 10.8 gm/dl (11.8-15.2)
--- NOTE | 2017-12-11 09:54 | Progress Note ---
Assessment and Plan Impression: * End stage renal disease, new --24hr crcl 11ml/min --SPEP shows a small M spike; SIFE pending; C4 low * Uremia * Cardiomyopathy --TTE - EF 10 to 15% * Chronic systolic heart failure * LV thrombus on chronic anticoagulation * Hypertension * Hepatitis C * Thrombocytopenia Plan: * s/p Permcath placement * Hemodialysis today, and then q MWF * anticoagulation per cards * CM consulted for outpatient dialysis clinic placement * Renal diet * Strict I/O * Avoid nephrotoxins Subjective Date of service: 12/11/17 Principal diagnosis: esrd Interval history: resting well in bed today Objective - Exam Narrative Exam: General appearance: well-developed, well-nourished EENT: ATNC Respiratory: Present: Decreased Breath Sounds Cardiology: regular, S1S2 Gastrointestinal: normal, no tenderness, no distended Integumentary: warm and dry Neurologic: no focal deficit, alert and oriented x3 Musculoskeletal: other (+edema) Psychiatric: cooperative - Vital Signs Vital signs: Vital Signs - 12hr 12/10/17 12/10/17 12/11/17 22:50 23:58 00:07 Temperature 97.3 F L Pulse Rate 72 71 65 Respiratory 20 Rate Blood Pressure 87/64 87/64 O2 Sat by Pulse 90 Oximetry 12/11/17 12/11/17 05:03 05:34 Temperature 98.1 F Pulse Rate 69 69 Respiratory 20 Rate Blood Pressure 100/52 100/52 O2 Sat by Pulse 99 Oximetry - Lab 12/11/17 06:25 12/10/17 05:19 Most recent lab results Calcium 9.2 mg/dL (8.4-10.2) 12/10/17 05:19
[2017-12-11 11:44] LABS: INR 3.01 (0.87-1.13)
[2017-12-11] MEDS: DELTASONE PO SCH (13:18)
[2017-12-11] MEDS: K-DUR PO SCH (13:19)
[2017-12-11] MEDS: ZYLOPRIM PO SCH (13:20)
--- NOTE | 2017-12-11 21:33 | Progress Note ---
Assessment and Plan Assessment and plan: --Acute gouty arthritis 1st toe. Symptoms significantly improved Start Allopurinol 100mg daily. Cannot give NSAID or Colchicine because of Renal function X Ray right foot; possible gout Check x-ray right great toe; gout --Cellulitis Lt toe/Toe nail infection empiric antibiotics with clindamycin Significantly improved --Uremia due to ESRD --ESRD; hemodialysis initiated Nephrology following, out patient hemodialysis per case management --Acute on chronic Systolic CHF --cardiomyopathy s/p AICD placement --History of left ventricular thrombus on anticoagulation with Coumadin. Therapeutic INR , [place] Heparin drip , target INR between 2-3 --Hepatitis C --Thrombocytopenia --Full code status Possible discharge in 1-2 days if stable DC planning per case management, outpatient HD setup History Interval history: Patient seen and examined medical records reviewed No new events reported by nursing staff Patient's right foot gout flareup significantly improved, denies any pain Left great toe nail bed infection, completely resolved, continue antibiotics Alert awake oriented 3 Vital signs reviewed Hospitalist Physical - Constitutional Vitals: Temp Pulse Resp BP Pulse Ox 98.1 F 69 20 100/52 99 12/11/17 05:03 12/11/17 05:34 12/11/17 05:03 12/11/17 05:34 12/11/17 05:03 General appearance: Present: no acute distress, well-nourished - EENT Eyes: Present: PERRL, EOM intact - Neck Neck: Present: supple, normal ROM - Respiratory Respiratory effort: normal Respiratory: bilateral: diminished, negative: rales, rhonchi, wheezing - Cardiovascular Rhythm: regular Heart Sounds: Present: S1 & S2 - Extremities Extremities: no ischemia, No edema - Abdominal General gastrointestinal: soft, non-tender, non-distended, normal bowel sounds - Integumentary Integumentary: Present: clear, warm - Psychiatric Psychiatric: appropriate mood/affect, cooperative - Neurologic Neurologic: CNII-XII intact, moves all extremities Results - Labs CBC & Chem 7: 12/11/17 06:25 12/10/17 05:19 Labs: Laboratory Last Values WBC 7.1 K/mm3 (4.5-11.0) 12/10/17 05:19 RBC 3.83 M/mm3 (3.65-5.03) 12/10/17 05:19 Hgb 10.8 gm/dl (11.8-15.2) L 12/11/17 06:25 Hct 33.0 % (35.5-45.6) L 12/11/17 06:25 MCV 91 fl (84-94) 12/10/17 05:19 MCH 30 pg (28-32) 12/10/17 05:19 MCHC 33 % (32-34) 12/10/17 05:19 RDW 17.4 % (13.2-15.2) H 12/10/17 05:19 Plt Count 165 K/mm3 (140-440) 12/11/17 06:25 Lymph % (Auto) 11.5 % (13.4-35.0) L 12/10/17 05:19 [place] % (Auto) 15.4 % (0.0-7.3) H 12/10/17 05:19 Eos % (Auto) 0.3 % (0.0-4.3) 12/10/17 05:19 Baso % (Auto) 0.1 % (0.0-1.8) 12/10/17 05:19 Lymph # 0.8 K/mm3 (1.2-5.4) L 12/10/17 05:19 [place] # 1.1 K/mm3 (0.0-0.8) H 12/10/17 05:19 Eos # 0.0 K/mm3 (0.0-0.4) 12/10/17 05:19 Baso # 0.0 K/mm3 (0.0-0.1) 12/10/17 05:19 Seg Neutrophils % 72.7 % (40.0-70.0) H 12/10/17 05:19 Seg Neutrophils # 5.2 K/mm3 (1.8-7.7) 12/10/17 05:19 PT 33.3 Sec. (12.2-14.9) H 12/11/17 10:42 INR 3.01 (0.87-1.13) H 12/11/17 10:42 APTT 39.8 Sec. (24.2-36.6) H 12/05/17 18:38 Heparin Anti-Xa Level < 0.10 U.I./ml (0.3-0.7) L 12/11/17 19:49 Sodium 135 mmol/L (137-145) L 12/10/17 05:19 Potassium 4.5 mmol/L (3.6-5.0) 12/10/17 05:19 Chloride 93.0 mmol/L (98-107) L 12/10/17 05:19 Carbon Dioxide 24 mmol/L (22-30) 12/10/17 05:19 Anion Gap 23 mmol/L 12/10/17 05:19 BUN 63 mg/dL (9-20) H 12/10/17 05:19 Creatinine 3.1 mg/dL (0.8-1.5) H 12/10/17 05:19 Estimated GFR 24 ml/min 12/10/17 05:19 BUN/Creatinine Ratio 20 % 12/10/17 05:19 Glucose 74 mg/dL (75-100) L 12/10/17 05:19 POC Glucose 97 (70-105) 12/11/17 16:14 Uric Acid 12.6 mg/dL (3.5-7.6) H 12/08/17 07:13 Calcium 9.2 mg/dL (8.4-10.2) 12/10/17 05:19 Hepatitis A IgM Ab Non-reactive (NonReactive) 12/08/17 19:28 Hep Bs Antigen Non-reactive (Negative) 12/08/17 19:28 Hep B Core IgM Ab Non-reactive (NonReactive) 12/08/17 19:28 Hepatitis C Antibody Reactive (NonReactive) A 12/08/17 19:28
[2017-12-12] MEDS: LASIX IV SCH ×2 (06:45→17:26)
[2017-12-12] MEDS: APRESOLINE PO SCH ×3 (06:45→21:51)
[2017-12-12] MEDS: CLEOCIN 600 MG/50 mL 600 MG/50 ML BAG IV SCH (06:45)
[2017-12-12 07:10] LABS: INR 2.97 (0.87-1.13)
[2017-12-12] MEDS: ZYLOPRIM PO SCH (09:17)
[2017-12-12] MEDS: K-DUR PO SCH (09:17)
[2017-12-12] MEDS: DELTASONE PO SCH (09:17)
[2017-12-12] MEDS: SODIUM CHLORIDE FLUSH SYRINGE 10 ML IV SCH ×2 (09:18→22:00)
[2017-12-12] MEDS: COREG PO SCH ×2 (09:21→21:50)
--- NOTE | 2017-12-12 12:08 | Progress Note ---
Assessment and Plan Assessment and plan: --Acute gouty arthritis 1st toe. Symptoms significantly improved Start Allopurinol 100mg daily. Cannot give NSAID or Colchicine because of Renal function X Ray right foot; possible gout Check x-ray right great toe; gout --Cellulitis Lt toe/Toe nail infection empiric antibiotics with clindamycin Significantly improved --Uremia due to ESRD --ESRD; hemodialysis initiated Nephrology following, out patient hemodialysis per case management --Acute on chronic Systolic CHF --cardiomyopathy s/p AICD placement --History of left ventricular thrombus on anticoagulation with Coumadin. Therapeutic INR , [place] Heparin drip , target INR between 2-3 --Hepatitis C --Thrombocytopenia --Full code status Possible discharge in 1-2 days if stable DC planning per case management, outpatient HD setup History Interval history: Patient seen and examined medical records reviewed Scheduled for hemodialysis today No new complaints Vital signs stable Hospitalist Physical - Constitutional Vitals: Temp Pulse Resp BP Pulse Ox 98.4 F 71 18 111/70 100 12/12/17 04:51 12/12/17 04:51 12/12/17 04:51 12/12/17 04:51 12/12/17 04:51 General appearance: Present: no acute distress, well-nourished - EENT Eyes: Present: PERRL, EOM intact - Neck Neck: Present: supple, normal ROM - Respiratory Respiratory effort: normal Respiratory: bilateral: diminished, negative: rales, rhonchi, wheezing - Cardiovascular Rhythm: regular Heart Sounds: Present: S1 & S2 - Extremities Extremities: no ischemia, No edema - Abdominal General gastrointestinal: soft, non-tender, non-distended, normal bowel sounds - Integumentary Integumentary: Present: clear, warm - Psychiatric Psychiatric: appropriate mood/affect, cooperative - Neurologic Neurologic: CNII-XII intact, moves all extremities Results - Labs CBC & Chem 7: 12/11/17 06:25 12/10/17 05:19 Labs: Laboratory Last Values WBC 7.1 K/mm3 (4.5-11.0) 12/10/17 05:19 RBC 3.83 M/mm3 (3.65-5.03) 12/10/17 05:19 Hgb 10.8 gm/dl (11.8-15.2) L 12/11/17 06:25 Hct 33.0 % (35.5-45.6) L 12/11/17 06:25 MCV 91 fl (84-94) 12/10/17 05:19 MCH 30 pg (28-32) 12/10/17 05:19 MCHC 33 % (32-34) 12/10/17 05:19 RDW 17.4 % (13.2-15.2) H 12/10/17 05:19 Plt Count 165 K/mm3 (140-440) 12/11/17 06:25 Lymph % (Auto) 11.5 % (13.4-35.0) L 12/10/17 05:19 [place] % (Auto) 15.4 % (0.0-7.3) H 12/10/17 05:19 Eos % (Auto) 0.3 % (0.0-4.3) 12/10/17 05:19 Baso % (Auto) 0.1 % (0.0-1.8) 12/10/17 05:19 Lymph # 0.8 K/mm3 (1.2-5.4) L 12/10/17 05:19 [place] # 1.1 K/mm3 (0.0-0.8) H 12/10/17 05:19 Eos # 0.0 K/mm3 (0.0-0.4) 12/10/17 05:19 Baso # 0.0 K/mm3 (0.0-0.1) 12/10/17 05:19 Seg Neutrophils % 72.7 % (40.0-70.0) H 12/10/17 05:19 Seg Neutrophils # 5.2 K/mm3 (1.8-7.7) 12/10/17 05:19 PT 33.0 Sec. (12.2-14.9) H 12/12/17 06:33 INR 2.97 (0.87-1.13) H 12/12/17 06:33 APTT 39.8 Sec. (24.2-36.6) H 12/05/17 18:38 Heparin Anti-Xa Level < 0.10 U.I./ml (0.3-0.7) L 12/11/17 19:49 Sodium 135 mmol/L (137-145) L 12/10/17 05:19 Potassium 4.5 mmol/L (3.6-5.0) 12/10/17 05:19 Chloride 93.0 mmol/L (98-107) L 12/10/17 05:19 Carbon Dioxide 24 mmol/L (22-30) 12/10/17 05:19 Anion Gap 23 mmol/L 12/10/17 05:19 BUN 63 mg/dL (9-20) H 12/10/17 05:19 Creatinine 3.1 mg/dL (0.8-1.5) H 12/10/17 05:19 Estimated GFR 24 ml/min 12/10/17 05:19 BUN/Creatinine Ratio 20 % 12/10/17 05:19 Glucose 74 mg/dL (75-100) L 12/10/17 05:19 POC Glucose 101 (70-105) 12/12/17 06:17 Uric Acid 12.6 mg/dL (3.5-7.6) H 12/08/17 07:13 Calcium 9.2 mg/dL (8.4-10.2) 12/10/17 05:19 Hepatitis A IgM Ab Non-reactive (NonReactive) 12/08/17 19:28 Hep Bs Antigen Non-reactive (Negative) 12/08/17 19:28 Hep B Core IgM Ab Non-reactive (NonReactive) 12/08/17 19:28 Hepatitis C Antibody Reactive (NonReactive) A 12/08/17 19:28
--- NOTE | 2017-12-12 15:00 | Progress Note ---
Assessment and Plan mpression: * End stage renal disease, new --24hr crcl 11ml/min --SPEP shows a small M spike; SIFE pending; C4 low * Uremia * Cardiomyopathy --TTE - EF 10 to 15% * Chronic systolic heart failure * LV thrombus on chronic anticoagulation * Hypertension * Hepatitis C * Thrombocytopenia Plan: * s/p Permcath placement * Continue Hemodialysis on MWF schedule * anticoagulation per cards * CM consulted for outpatient dialysis clinic placement * Renal diet * Strict I/O * Avoid nephrotoxins Subjective Date of service: 12/12/17 Principal diagnosis: esrd Interval history: pt undergoing dialysis . tolerating well . SOB better Objective - Vital Signs Vital signs: Vital Signs - 12hr 12/12/17 12/12/17 12/12/17 04:51 10:15 10:30 Temperature 98.4 F 98.3 F Pulse Rate 71 69 69 Respiratory 18 18 Rate Blood Pressure 111/70 103/66 106/55 O2 Sat by Pulse 100 Oximetry 12/12/17 12/12/17 12/12/17 10:45 11:00 11:15 Temperature Pulse Rate 68 69 68 Respiratory Rate Blood Pressure 113/65 92/54 104/61 O2 Sat by Pulse Oximetry 12/12/17 12/12/17 12/12/17 11:30 11:45 12:00 Temperature Pulse Rate 67 67 49 L Respiratory Rate Blood Pressure 111/67 108/44 110/58 O2 Sat by Pulse Oximetry 12/12/17 12/12/17 12/12/17 12:15 12:30 12:45 Temperature Pulse Rate 69 67 68 Respiratory Rate Blood Pressure 105/64 110/57 108/54 O2 Sat by Pulse Oximetry 12/12/17 12/12/17 13:00 13:15 Temperature Pulse Rate 68 68 Respiratory Rate Blood Pressure 110/59 113/52 O2 Sat by Pulse Oximetry - General Appearance General appearance: well-developed, well-nourished, appears stated age EENT: PERRL, mucous membranes moist Neck: no JVD, no thyromegaly, no carotid bruit, supple, other (IJ permcath in place ) Respiratory: Present: Clear to Ascultation Cardiology: regular, normal heart rate, S1S2, no murmurs Gastrointestinal: normal, normoactive bowel sounds Integumentary: other (1+ edema ) - Lab 12/11/17 06:25 12/10/17 05:19 Most recent lab results Calcium 9.2 mg/dL (8.4-10.2) 12/10/17 05:19
[2017-12-12] MEDS: CLEOCIN PO SCH ×2 (15:47→21:51)
[2017-12-12] MEDS ORDERED: COUMADIN PO SCH (17:00)
[2017-12-12] MEDS: HEPARIN IV PRN (17:27)
[2017-12-12] MEDS: HEPARIN 10,000 UNITS/10 ML IV PRN (17:28)
[2017-12-13 04:27] LABS: Hematocrit 32.4 % (35.5-45.6); Hemoglobin 10.5 gm/dl (11.8-15.2)
[2017-12-13 04:57] LABS: INR 2.69 (0.87-1.13)
[2017-12-13] MEDS: LASIX IV SCH ×2 (06:33→17:28)
[2017-12-13] MEDS: APRESOLINE PO SCH ×3 (06:34→21:50)
[2017-12-13] MEDS: ZYLOPRIM PO SCH (10:12)
[2017-12-13] MEDS: COREG PO SCH ×2 (10:12→21:49)
[2017-12-13] MEDS: K-DUR PO SCH (10:12)
[2017-12-13] MEDS: DELTASONE PO SCH (10:12)
[2017-12-13] MEDS: CLEOCIN PO SCH ×4 (10:13→21:49)
[2017-12-13] MEDS: SODIUM CHLORIDE FLUSH SYRINGE 10 ML IV SCH ×2 (10:14→21:50)
--- NOTE | 2017-12-13 12:35 | Progress Note ---
Assessment and Plan mpression: * End stage renal disease, new --24hr crcl 11ml/min --SPEP shows a small M spike; SIFE pending; C4 low * Uremia * Cardiomyopathy --TTE - EF 10 to 15% * Chronic systolic heart failure * LV thrombus on chronic anticoagulation * Hypertension * Hepatitis C * Thrombocytopenia Plan: * Continue Hemodialysis on MWF schedule * anticoagulation per cards * CM consulted for outpatient dialysis clinic placement * Renal diet * Strict I/O * Avoid nephrotoxins Subjective Date of service: 12/13/17 Principal diagnosis: esrd Interval history: pt had uneventful dialysis yesterday . SOB better Objective - Vital Signs Vital signs: Vital Signs - 12hr 12/13/17 12/13/17 12/13/17 04:39 07:31 11:57 Temperature 98.3 F 98.5 F 98.1 F Pulse Rate 49 L 70 67 Respiratory 18 16 16 Rate Blood Pressure 114/78 95/58 Blood Pressure 93/55 [Left] O2 Sat by Pulse 97 99 100 Oximetry - General Appearance General appearance: well-developed, well-nourished, appears stated age EENT: PERRL, mucous membranes moist Neck: no JVD, no thyromegaly, no carotid bruit, supple, other (IJ permcath in place ) Respiratory: Present: Clear to Ascultation Cardiology: regular, normal heart rate, S1S2, no murmurs Gastrointestinal: normal, normoactive bowel sounds Integumentary: other (no edema ) - Lab 12/13/17 03:15 12/10/17 05:19 Most recent lab results Calcium 9.2 mg/dL (8.4-10.2) 12/10/17 05:19
--- NOTE | 2017-12-13 13:28 | Progress Note ---
Assessment and Plan Assessment and plan: --ESRD; hemodialysis initiated Nephrology following, out patient hemodialysis per case management --Acute gouty arthritis 1st toe. Symptoms significantly improved Continue Allopurinol 100mg daily. X Ray right foot; possible gout, Check x-ray right great toe; gout Symptoms improved --Cellulitis Lt toe/Toe nail infection ; resolved Received clindamycin --Uremia due to ESRD --Acute on chronic Systolic CHF --cardiomyopathy s/p AICD placement --History of left ventricular thrombus on anticoagulation with Coumadin. Therapeutic INR , [place] Heparin drip , target INR between 2-3 --Hepatitis C/ Thrombocytopenia --Full code status The patient is medically stable for discharge Awaiting outpatient hemodialysis schedule Discharge planning per case management History Interval history: Patient seen and examined medical records reviewed no new events reported by the nursing staff Patient is awaiting outpatient hemodialysis schedule Patient alert awake oriented 3 No new complaints Vital Signs reviewed Hospitalist Physical - Constitutional Vitals: Temp Pulse Resp BP Pulse Ox 98.1 F 67 16 93/55 100 12/13/17 11:57 12/13/17 11:57 12/13/17 11:57 12/13/17 11:57 12/13/17 11:57 General appearance: Present: no acute distress, well-nourished - EENT Eyes: Present: PERRL, EOM intact - Neck Neck: Present: supple, normal ROM - Respiratory Respiratory effort: normal Respiratory: bilateral: diminished, negative: rales, rhonchi, wheezing - Cardiovascular Rhythm: regular Heart Sounds: Present: S1 & S2 - Extremities Extremities: no ischemia, No edema - Abdominal General gastrointestinal: soft, non-tender, non-distended, normal bowel sounds - Integumentary Integumentary: Present: clear, warm - Psychiatric Psychiatric: appropriate mood/affect, cooperative - Neurologic Neurologic: CNII-XII intact, moves all extremities Results - Labs CBC & Chem 7: 12/13/17 03:15 12/10/17 05:19 Labs: Laboratory Last Values WBC 7.1 K/mm3 (4.5-11.0) 12/10/17 05:19 RBC 3.83 M/mm3 (3.65-5.03) 12/10/17 05:19 Hgb 10.5 gm/dl (11.8-15.2) L 12/13/17 03:15 Hct 32.4 % (35.5-45.6) L 12/13/17 03:15 MCV 91 fl (84-94) 12/10/17 05:19 MCH 30 pg (28-32) 12/10/17 05:19 MCHC 33 % (32-34) 12/10/17 05:19 RDW 17.4 % (13.2-15.2) H 12/10/17 05:19 Plt Count 191 K/mm3 (140-440) 12/13/17 03:15 Lymph % (Auto) 11.5 % (13.4-35.0) L 12/10/17 05:19 [place] % (Auto) 15.4 % (0.0-7.3) H 12/10/17 05:19 Eos % (Auto) 0.3 % (0.0-4.3) 12/10/17 05:19 Baso % (Auto) 0.1 % (0.0-1.8) 12/10/17 05:19 Lymph # 0.8 K/mm3 (1.2-5.4) L 12/10/17 05:19 [place] # 1.1 K/mm3 (0.0-0.8) H 12/10/17 05:19 Eos # 0.0 K/mm3 (0.0-0.4) 12/10/17 05:19 Baso # 0.0 K/mm3 (0.0-0.1) 12/10/17 05:19 Seg Neutrophils % 72.7 % (40.0-70.0) H 12/10/17 05:19 Seg Neutrophils # 5.2 K/mm3 (1.8-7.7) 12/10/17 05:19 PT 30.4 Sec. (12.2-14.9) H 12/13/17 03:15 INR 2.69 (0.87-1.13) H 12/13/17 03:15 APTT 39.8 Sec. (24.2-36.6) H 12/05/17 18:38 Heparin Anti-Xa Level < 0.10 U.I./ml (0.3-0.7) L 12/11/17 19:49 Sodium 135 mmol/L (137-145) L 12/10/17 05:19 Potassium 4.5 mmol/L (3.6-5.0) 12/10/17 05:19 Chloride 93.0 mmol/L (98-107) L 12/10/17 05:19 Carbon Dioxide 24 mmol/L (22-30) 12/10/17 05:19 Anion Gap 23 mmol/L 12/10/17 05:19 BUN 63 mg/dL (9-20) H 12/10/17 05:19 Creatinine 3.1 mg/dL (0.8-1.5) H 12/10/17 05:19 Estimated GFR 24 ml/min 12/10/17 05:19 BUN/Creatinine Ratio 20 % 12/10/17 05:19 Glucose 74 mg/dL (75-100) L 12/10/17 05:19 POC Glucose 94 (70-105) 12/13/17 11:27 Uric Acid 12.6 mg/dL (3.5-7.6) H 12/08/17 07:13 Calcium 9.2 mg/dL (8.4-10.2) 12/10/17 05:19 Hepatitis A IgM Ab Non-reactive (NonReactive) 12/08/17 19:28 Hep Bs Antigen Non-reactive (Negative) 12/08/17 19:28 Hep B Core IgM Ab Non-reactive (NonReactive) 12/08/17 19:28 Hepatitis C Antibody Reactive (NonReactive) A 12/08/17 19:28
[2017-12-13] MEDS ORDERED: COUMADIN PO SCH (17:00)
[2017-12-14] MEDS: LASIX IV SCH ×2 (06:36→17:10)
[2017-12-14] MEDS: APRESOLINE PO SCH ×3 (06:51→23:00)
[2017-12-14] MEDS: SODIUM CHLORIDE FLUSH SYRINGE 10 ML IV SCH ×2 (10:46→23:00)
[2017-12-14] MEDS: K-DUR PO SCH (10:47)
[2017-12-14] MEDS: DELTASONE PO SCH (10:48)
[2017-12-14] MEDS: CLEOCIN PO SCH ×3 (10:48→17:11)
[2017-12-14] MEDS: ZYLOPRIM PO SCH (10:48)
[2017-12-14] MEDS: COREG PO SCH ×2 (10:49→23:00)
[2017-12-14 11:05] LABS: INR 1.97 (0.87-1.13)
--- NOTE | 2017-12-14 11:15 | Progress Note ---
Assessment and Plan mpression: * End stage renal disease, new --24hr crcl 11ml/min --SPEP shows a small M spike; SIFE pending; C4 low * Uremia * Cardiomyopathy --TTE - EF 10 to 15% * Chronic systolic heart failure * LV thrombus on chronic anticoagulation * Hypertension * Hepatitis C * Thrombocytopenia Plan: * Continue Hemodialysis on MWF schedule * anticoagulation per cards * CM consulted for outpatient dialysis clinic placement * Renal diet * Strict I/O * Avoid nephrotoxins Subjective Date of service: 12/14/17 Principal diagnosis: esrd Interval history: pt is comfortable . Denies SOB . No nausea or vomiting Objective - Vital Signs Vital signs: Vital Signs - 12hr 12/14/17 12/14/17 12/14/17 05:19 06:51 10:49 Temperature 98.3 F Pulse Rate 71 71 64 Respiratory 18 Rate Blood Pressure 107/67 107/67 114/61 O2 Sat by Pulse 100 Oximetry - General Appearance General appearance: well-developed, well-nourished, appears stated age EENT: PERRL, mucous membranes moist Neck: no JVD, no thyromegaly, no carotid bruit, supple, other (right IJ permcath in place ) Respiratory: Present: Clear to Ascultation Cardiology: regular, normal heart rate, S1S2, no murmurs Gastrointestinal: normal, normoactive bowel sounds Integumentary: other (trace edema ) - Lab 12/13/17 03:15 12/10/17 05:19 Most recent lab results Calcium 9.2 mg/dL (8.4-10.2) 12/10/17 05:19
[2017-12-14] MEDS: COUMADIN PO SCH (17:11)
--- NOTE | 2017-12-14 18:38 | Progress Note ---
Assessment and Plan Assessment and plan: --ESRD; hemodialysis initiated Nephrology following, out patient hemodialysis per case management --Acute gouty arthritis 1st toe. Symptoms significantly improved Continue Allopurinol 100mg daily. X Ray right foot; possible gout, Check x-ray right great toe; gout Symptoms improved --Cellulitis Lt toe/Toe nail infection ; resolved Received clindamycin --Uremia due to ESRD --Acute on chronic Systolic CHF --cardiomyopathy s/p AICD placement --History of left ventricular thrombus on anticoagulation with Coumadin. Therapeutic INR , [place] Heparin drip , target INR between 2-3 --Hepatitis C/ Thrombocytopenia --Full code status The patient is medically stable for discharge Awaiting outpatient hemodialysis schedule Discharge planning per case management History Interval history: Patient seen and examined, medical records reviewed No new complaints , patient feels better Awaiting outpatient hemodialysis schedule Vital signs reviewed Hospitalist Physical - Constitutional Vitals: Temp Pulse Resp BP Pulse Ox 97.5 F L 72 18 123/71 99 12/14/17 17:43 12/14/17 17:43 12/14/17 17:43 12/14/17 17:43 12/14/17 17:43 General appearance: Present: no acute distress, well-nourished - EENT Eyes: Present: PERRL, EOM intact - Neck Neck: Present: supple, normal ROM - Respiratory Respiratory effort: normal Respiratory: negative: rales, rhonchi, wheezing - Cardiovascular Rhythm: regular Heart Sounds: Present: S1 & S2 - Extremities Extremities: no ischemia, No edema - Abdominal General gastrointestinal: soft, non-tender, non-distended, normal bowel sounds - Integumentary Integumentary: Present: clear, warm - Psychiatric Psychiatric: appropriate mood/affect, cooperative - Neurologic Neurologic: CNII-XII intact, moves all extremities Results - Labs CBC & Chem 7: 12/13/17 03:15 12/10/17 05:19 Labs: Laboratory Last Values WBC 7.1 K/mm3 (4.5-11.0) 12/10/17 05:19 RBC 3.83 M/mm3 (3.65-5.03) 12/10/17 05:19 Hgb 10.5 gm/dl (11.8-15.2) L 12/13/17 03:15 Hct 32.4 % (35.5-45.6) L 12/13/17 03:15 MCV 91 fl (84-94) 12/10/17 05:19 MCH 30 pg (28-32) 12/10/17 05:19 MCHC 33 % (32-34) 12/10/17 05:19 RDW 17.4 % (13.2-15.2) H 12/10/17 05:19 Plt Count 191 K/mm3 (140-440) 12/13/17 03:15 Lymph % (Auto) 11.5 % (13.4-35.0) L 12/10/17 05:19 [place] % (Auto) 15.4 % (0.0-7.3) H 12/10/17 05:19 Eos % (Auto) 0.3 % (0.0-4.3) 12/10/17 05:19 Baso % (Auto) 0.1 % (0.0-1.8) 12/10/17 05:19 Lymph # 0.8 K/mm3 (1.2-5.4) L 12/10/17 05:19 [place] # 1.1 K/mm3 (0.0-0.8) H 12/10/17 05:19 Eos # 0.0 K/mm3 (0.0-0.4) 12/10/17 05:19 Baso # 0.0 K/mm3 (0.0-0.1) 12/10/17 05:19 Seg Neutrophils % 72.7 % (40.0-70.0) H 12/10/17 05:19 Seg Neutrophils # 5.2 K/mm3 (1.8-7.7) 12/10/17 05:19 PT 23.7 Sec. (12.2-14.9) H 12/14/17 09:45 INR 1.97 (0.87-1.13) H 12/14/17 09:45 APTT 39.8 Sec. (24.2-36.6) H 12/05/17 18:38 Heparin Anti-Xa Level < 0.10 U.I./ml (0.3-0.7) L 12/11/17 19:49 Sodium 135 mmol/L (137-145) L 12/10/17 05:19 Potassium 4.5 mmol/L (3.6-5.0) 12/10/17 05:19 Chloride 93.0 mmol/L (98-107) L 12/10/17 05:19 Carbon Dioxide 24 mmol/L (22-30) 12/10/17 05:19 Anion Gap 23 mmol/L 12/10/17 05:19 BUN 63 mg/dL (9-20) H 12/10/17 05:19 Creatinine 3.1 mg/dL (0.8-1.5) H 12/10/17 05:19 Estimated GFR 24 ml/min 12/10/17 05:19 BUN/Creatinine Ratio 20 % 12/10/17 05:19 Glucose 74 mg/dL (75-100) L 12/10/17 05:19 POC Glucose 139 (70-105) H 12/14/17 16:17 Uric Acid 12.6 mg/dL (3.5-7.6) H 12/08/17 07:13 Calcium 9.2 mg/dL (8.4-10.2) 12/10/17 05:19 Hepatitis A IgM Ab Non-reactive (NonReactive) 12/08/17 19:28 Hep Bs Antigen Non-reactive (Negative) 12/08/17 19:28 Hep B Core IgM Ab Non-reactive (NonReactive) 12/08/17 19:28 Hepatitis C Antibody Reactive (NonReactive) A 12/08/17 19:28
[2017-12-15] MEDS: LASIX IV SCH ×2 (06:19→18:44)
[2017-12-15] MEDS: APRESOLINE PO SCH ×3 (06:30→22:16)
[2017-12-15 06:52] LABS: Basophils % (Auto) 0.1 % (0.0-1.8); Hematocrit 32.3 % (35.5-45.6); Hemoglobin 10.4 gm/dl (11.8-15.2); Lymphocytes # (Auto) 0.6 K/mm3 (1.2-5.4); Lymphocytes % (Auto) 9.7 % (13.4-35.0); Mean Corpuscular HGB Conc 32 % (32-34); Mean Corpuscular Hemoglobin 29 pg (28-32); Mean Corpuscular Volume 91 fl (84-94); Monocytes # (Auto) 0.6 K/mm3 (0.0-0.8); Monocytes % (Auto) 8.6 % (0.0-7.3); Platelet Count 192 K/mm3 (140-440); Red Blood Count 3.56 M/mm3 (3.65-5.03); Red Cell Distribution Width 17.1 % (13.2-15.2)
[2017-12-15 07:15] LABS: Calcium 8.8 mg/dL (8.4-10.2)
[2017-12-15 07:35] LABS: INR 2.3 (0.87-1.13)
--- NOTE | 2017-12-15 08:55 | Progress Note ---
Subjective Principal diagnosis: esrd Interval history: Patient was seen today for follow-up on multiple renal related issues No complaints of any chest pain pressure or shortness of breath or any voiding problems starter diagnosis tolerating well Events of this hospitalization noted Interdisciplinary notes were also reviewed Past medical history: Reviewed Family history: Reviewed Social history: Reviewed Vitals: Reviewed HEENT: Oral mucosa dry Neck: Supple no thyromegaly no JVD Chest: Clear to auscultation anteriorly no crackles or wheezes CVC in place Heart: Regular rate and rhythm S1-S2 heard no S3-S4 Abdomen: Soft nontender dry skin and no organomegaly Extremity: Less than 1+ edema dry skin no petechial rash Musculoskeletal: No joint effusion noted Assessment and plan: End-stage renal disease: Patient has been placed on renal placement therapy on Friday, patient has been adequately counseled and educated regarding end-stage renal disease did plan lifestyle changes that needs to be maintained Recent creatinine clearance was only 11 mL/m patient was symptomatic with uremia Severe cardiomyopathy ejection fraction is around 10-15% with chronic systolic heart failure to monitor and follow overall prognosis very poor, high risk for arrhythmias and sudden patient clearly explained Left ventricular thrombus: Currently and anticoagulation and is being followed by cardiology Thrombocytopenia: To monitor and follow as patient continues to be an anticoagulation this could be multifactorial History of underlying hepatitis C, will need to see and follow with GI Anemia in end-stage renal disease: To monitor and follow Secondary hyperparathyroidism check phosphorus and PTH level periodically patient needs to be on cardiac and renal diet and must be seen and followed by dietitian Long-term prognosis guarded to poor due to multiple comorbidities Will check phosphorus PTH level today as well as iron profile B12 folic acid and reticulocyte count All related issues were discussed with patient Renal prognosis remains guarded at this time Patient does exhibit good understanding of all the renal related issues We'll continue to follow and make recommendations from renal standpoint For any questions feel free to contact me at [phone] Objective - Vital Signs Vital signs: Vital Signs - 12hr 12/14/17 12/14/17 12/14/17 22:00 22:55 23:00 Temperature Pulse Rate 72 Pulse Rate [ 70 Right Radial] Respiratory 16 Rate Blood Pressure 120/83 120/83 O2 Sat by Pulse Oximetry 12/14/17 12/15/17 12/15/17 23:29 05:33 06:30 Temperature 98.1 F 97.8 F Pulse Rate 70 74 84 Pulse Rate [ Right Radial] Respiratory 20 20 Rate Blood Pressure 105/67 126/83 126/83 O2 Sat by Pulse 100 98 Oximetry - Lab 12/15/17 05:38 12/15/17 06:07 Most recent lab results Calcium 8.8 mg/dL (8.4-10.2) 12/15/17 06:07
[2017-12-15] MEDS: DELTASONE PO SCH (10:04)
[2017-12-15] MEDS: COREG PO SCH ×2 (10:04→22:16)
[2017-12-15] MEDS: K-DUR PO SCH (10:04)
[2017-12-15] MEDS: ZYLOPRIM PO SCH (10:04)
[2017-12-15] MEDS: SODIUM CHLORIDE FLUSH SYRINGE 10 ML IV SCH ×2 (10:04→22:17)
[2017-12-15 10:10] LABS: % Iron Saturation 21.48 %
--- NOTE | 2017-12-15 11:52 | Progress Note ---
Assessment and Plan Assessment and plan: --ESRD; hemodialysis initiated Nephrology following, out patient hemodialysis per case management --Acute gouty arthritis 1st toe. Symptoms significantly improved Continue Allopurinol 100mg daily. X Ray right foot; possible gout, Check x-ray right great toe; gout Symptoms improved --Cellulitis Lt toe/Toe nail infection ; resolved Received clindamycin --Uremia due to ESRD --Acute on chronic Systolic CHF --cardiomyopathy s/p AICD placement --History of left ventricular thrombus on anticoagulation with Coumadin. Therapeutic INR , DC Heparin drip , target INR between 2-3 --Hepatitis C/ Thrombocytopenia --Full code status The patient is medically stable for discharge Awaiting outpatient hemodialysis schedule Discharge planning per case management Hospitalist Physical - Constitutional Vitals: Temp Pulse Resp BP Pulse Ox 97.8 F 84 20 126/83 98 12/15/17 05:33 12/15/17 06:30 12/15/17 05:33 12/15/17 06:30 12/15/17 05:33 General appearance: Present: no acute distress, well-nourished Results - Labs CBC & Chem 7: 12/15/17 05:38 12/15/17 06:07 Labs: Laboratory Last Values WBC 6.5 K/mm3 (4.5-11.0) 12/15/17 05:38 RBC 3.56 M/mm3 (3.65-5.03) L 12/15/17 05:38 Hgb 10.4 gm/dl (11.8-15.2) L 12/15/17 05:38 Hct 32.3 % (35.5-45.6) L 12/15/17 05:38 MCV 91 fl (84-94) 12/15/17 05:38 MCH 29 pg (28-32) 12/15/17 05:38 MCHC 32 % (32-34) 12/15/17 05:38 RDW 17.1 % (13.2-15.2) H 12/15/17 05:38 Plt Count 192 K/mm3 (140-440) 12/15/17 05:38 Lymph % (Auto) 9.7 % (13.4-35.0) L 12/15/17 05:38 Moffat % (Auto) 8.6 % (0.0-7.3) H 12/15/17 05:38 Eos % (Auto) 0.0 % (0.0-4.3) 12/15/17 05:38 Baso % (Auto) 0.1 % (0.0-1.8) 12/15/17 05:38 Lymph # 0.6 K/mm3 (1.2-5.4) L 12/15/17 05:38 Moffat # 0.6 K/mm3 (0.0-0.8) 12/15/17 05:38 Eos # 0.0 K/mm3 (0.0-0.4) 12/15/17 05:38 Baso # 0.0 K/mm3 (0.0-0.1) 12/15/17 05:38 Seg Neutrophils % 81.6 % (40.0-70.0) H 12/15/17 05:38 Seg Neutrophils # 5.3 K/mm3 (1.8-7.7) 12/15/17 05:38 Percent Retic 0.53 % (0.78-2.58) L 12/15/17 09:08 PT 26.8 Sec. (12.2-14.9) H 12/15/17 05:38 INR 2.30 (0.87-1.13) H 12/15/17 05:38 APTT 39.8 Sec. (24.2-36.6) H 12/05/17 18:38 Heparin Anti-Xa Level < 0.10 U.I./ml (0.3-0.7) L 12/11/17 19:49 Sodium 138 mmol/L (137-145) 12/15/17 06:07 Potassium 4.9 mmol/L (3.6-5.0) 12/15/17 06:07 Chloride 97.3 mmol/L (98-107) L 12/15/17 06:07 Carbon Dioxide 23 mmol/L (22-30) 12/15/17 06:07 Anion Gap 23 mmol/L 12/15/17 06:07 BUN 73 mg/dL (9-20) H 12/15/17 06:07 Creatinine 3.8 mg/dL (0.8-1.5) H 12/15/17 06:07 Estimated GFR 19 ml/min 12/15/17 06:07 BUN/Creatinine Ratio 19 % 12/15/17 06:07 Glucose 88 mg/dL (75-100) 12/15/17 06:07 POC Glucose 75 (70-105) 12/15/17 11:22 Uric Acid 12.6 mg/dL (3.5-7.6) H 12/08/17 07:13 Calcium 8.8 mg/dL (8.4-10.2) 12/15/17 06:07 Phosphorus 4.20 mg/dL (2.5-4.5) 12/15/17 09:08 Iron 32 ug/dL (49-181) L 12/15/17 09:08 TIBC 149 mcg/dL (250-450) L 12/15/17 09:08 % Saturation 21.48 % 12/15/17 09:08 Transferrin 124 mg/dl (180-329) L 12/15/17 09:08 Vitamin B12 719.5 pg/mL (211-911) 12/15/17 09:08 PTH Intact 112.9 pg/mL (15-65) H 12/15/17 09:08 Hepatitis A IgM Ab Non-reactive (NonReactive) 12/08/17 19:28 Hep Bs Antigen Non-reactive (Negative) 12/08/17 19:28 Hep B Core IgM Ab Non-reactive (NonReactive) 12/08/17 19:28 Hepatitis C Antibody Reactive (NonReactive) A 12/08/17 19:28
--- NOTE | 2017-12-15 12:56 | Progress Note ---
Assessment and Plan Continue dialysis and other management. Will see as needed. Patient is advised to follow up with his primary assistant professor of music, Dr. Hale within one week of hospital discharge. - Patient Problems (1) Acute on chronic HFrEF (heart failure with reduced ejection fraction) Current Visit: Yes Status: Acute (2) LV (left ventricular) mural thrombus Current Visit: No Status: Acute (3) Cardiomyopathy Current Visit: Yes Status: Chronic (4) Automatic implantable cardioverter-defibrillator in situ Current Visit: No Status: Chronic (5) Acute kidney injury superimposed on chronic kidney disease Current Visit: No Status: Chronic (6) Elevated troponin Current Visit: No Status: Acute (7) HTN (hypertension) Current Visit: No Status: Chronic Qualifiers: Hypertension type: essential hypertension Qualified Code(s): I10 - Essential (primary) hypertension (8) Thrombocytopenia Current Visit: No Status: Acute (9) Hepatitis C Current Visit: No Status: Chronic Subjective Date of service: 12/15/17 Principal diagnosis: Acute on chronic HFrEF Interval history: The patient is resting comfortably in bed. No new complaints. Objective Last Vital Signs Temp 97.3 F L 12/15/17 12:26 Pulse 72 12/15/17 12:26 Resp 18 12/15/17 12:26 BP 109/71 12/15/17 12:26 Pulse Ox 100 12/15/17 12:26 - Physical Examination General: No Apparent Distress HEENT: Positive: PERRL, EOMI Neck: Positive: neck supple, trachea midline Cardiac: Positive: Reg Rate and Rhythm, S1/S2 Lungs: Positive: clear to auscultation Neuro: Positive: Grossly Intact Abdomen: Positive: Soft. Negative: Tender Skin: Positive: Clear. Negative: Rash Extremities: Present: edema (trace edema-right leg), +1 Edema (left leg) - Labs and Meds Coagulation 12/15/17 Range/Units 05:38 PT 26.8 H (12.2-14.9) Sec. INR 2.30 H (0.87-1.13) CBC 12/15/17 Range/Units 05:38 WBC 6.5 (4.5-11.0) K/mm3 RBC 3.56 L (3.65-5.03) M/mm3 Hgb 10.4 L (11.8-15.2) gm/dl Hct 32.3 L (35.5-45.6) % Plt Count 192 (140-440) K/mm3 Lymph # 0.6 L (1.2-5.4) K/mm3 Robeson # 0.6 (0.0-0.8) K/mm3 Eos # 0.0 (0.0-0.4) K/mm3 Baso # 0.0 (0.0-0.1) K/mm3 Comprehensive Metabolic Panel 12/15/17 Range/Units 06:07 Sodium 138 (137-145) mmol/L Potassium 4.9 (3.6-5.0) mmol/L Chloride 97.3 L (98-107) mmol/L Carbon Dioxide 23 (22-30) mmol/L BUN 73 H (9-20) mg/dL Creatinine 3.8 H (0.8-1.5) mg/dL Glucose 88 (75-100) mg/dL Calcium 8.8 (8.4-10.2) mg/dL - Imaging and Cardiology Echo: report reviewed (11/27/17: EF 10-15%, LV apical thrombus, mild AR, mild- moderate MR, moderate TR)
[2017-12-15] MEDS ORDERED: NACL 0.9 (PRIMING MACHINE ONLY DIALYSIS) MC ONE (15:03)
[2017-12-15] MEDS: COUMADIN PO SCH (18:43)
[2017-12-16] MEDS: LASIX IV SCH (06:57)
[2017-12-16] MEDS: APRESOLINE PO SCH (06:58)
[2017-12-16 07:02] LABS: INR 2.18 (0.87-1.13)
--- NOTE | 2017-12-16 08:56 | Progress Note ---
Subjective Principal diagnosis: esrd Interval history: Patient was seen today for follow-up on multiple renal related issues Feeling better today Interdisciplinary notes were also reviewed Past medical history: Reviewed Family history: Reviewed Social history: Reviewed Vitals: Reviewed HEENT: Oral mucosa dry Neck: Supple no thyromegaly no JVD Chest: Clear to auscultation anteriorly no crackles or wheezes CVC in place, site is clear educated about care Heart: Regular rate and rhythm S1-S2 heard no S3-S4 Abdomen: Soft nontender dry skin and no organomegaly Extremity: Less than 1+ edema dry skin no petechial rash Musculoskeletal: No joint effusion noted Assessment and plan: End-stage renal disease continue with hemodialysis as tolerated 3 times a week for now with central venous catheter Severe cardiomyopathy: Likely end-stage heart disease: Prognosis very poor will be prone to arrhythmias and sudden , this has been clearly discussed with patient he does understand that there is a risk of during dialysis due to week heart and wants to proceed with dialysis. He will need to follow-up with his cardiac monitor within a week He will likely require follow-up on the ejection fraction in the next 4-6 weeks as he has started dialysis Hypertension blood pressure has been normal to low Left ventricular apical thrombus with moderate mitral regurgitation tricuspid regurgitation Overall prognosis: Long-term very poor, mortality risk is high patient is well educated Patient currently not felt to be a good candidate for fistula creation due to severe cardiomyopathy in my opinion will be high risk for anesthesia we'll check with vascular surgery Outpatient dialysis at [facility], it has already been established Thrombocytopenia: To monitor and follow as patient continues to be an anticoagulation this could be multifactorial History of underlying hepatitis C, will need to see and follow with GI Anemia in end-stage renal disease: To monitor and follow, PTH 112 B12 normal phosphorus 4.25 and saturation 21% Secondary hyperparathyroidism phosphorus and PTH stable no need for binder Long-term prognosis guarded to poor due to multiple comorbidities More than 35 minutes spent in direct patient care today also spoke with dialysis clinic about acceptance, Follow-up on the pending labs We'll continue to follow and make recommendations from renal standpoint For any questions feel free to contact me at [phone] Objective - Vital Signs Vital signs: Vital Signs - 12hr 12/15/17 12/15/17 12/15/17 22:08 22:16 23:14 Temperature 98.4 F 98.5 F Pulse Rate 71 72 70 Respiratory 17 16 Rate Blood Pressure 108/62 108/62 100/57 O2 Sat by Pulse 99 100 Oximetry 12/16/17 12/16/17 05:31 06:58 Temperature 98.3 F Pulse Rate 82 82 Respiratory 20 Rate Blood Pressure 118/79 118/78 O2 Sat by Pulse 100 Oximetry - Lab 12/15/17 05:38 12/15/17 06:07 Most recent lab results Calcium 8.8 mg/dL (8.4-10.2) 12/15/17 06:07 Phosphorus 4.20 mg/dL (2.5-4.5) 12/15/17 09:08
--- NOTE | 2017-12-16 09:25 | Discharge Summary ---
Providers - Providers Date of Admission: 12/05/17 18:44 Date of discharge: 12/16/17 Attending physician: JUAN PABLO FLOR 12/05/17 18:29 Consult to Physician [CONS] Routine Comment: DR POND NOTIFIED 1819 Consulting Provider: GAB POND Physician Instructions: Reason For Exam: renal Failure 12/05/17 18:38 Consult to Physician [CONS] Routine Comment: DR LAWSON NOTIFIED [id number] Consulting Provider: DELROY LAWSON Physician Instructions: Reason For Exam: Permacath placement 12/05/17 20:04 Consult to Physician [CONS] Routine Comment: Consulting Provider: KINGSTON MARTINES Physician Instructions: Reason For Exam: CHF 12/06/17 11:56 Consult to Case Management [CONS] Routine Services Needed at Discharge: Other Notified:: case management Additional Physician Instructions: outpatient dialysis clinic placement 12/08/17 14:38 Consult to Wound/ET Nurse [CONS] Routine Reason For Exam: wound eval especially right foot,toes 12/10/17 08:00 Consult to Physician [CONS] Routine Comment: Consulting Provider: SHELLEY WARNER Physician Instructions: Reason For Exam: Lt nail bed infection Primary care physician: [employer] Hospitalization Condition: Fair Disposition: DC/[place]-03 [facility] C[facility] Time spent for discharge: 32 min Core Measure Documentation - Palliative Care Palliative Care/ Comfort Measures: Not Applicable - Core Measures Any of the following diagnoses?: heart failure - Heart Failure Discharge Requirements VALDEMAR/ARB for LVSD if EF <40%: Yes Beta josiah at discharge: Yes Exam - Constitutional Vitals: Temp Pulse Resp BP Pulse Ox 98.3 F 82 20 118/78 100 12/16/17 05:31 12/16/17 06:58 12/16/17 05:31 12/16/17 06:58 12/16/17 05:31 Plan Activity: advance as tolerated, fall precautions Diet: low salt, renal Additional Instructions: f/u Renal/ HD per schedule. Frequent INR checks,Next INR on 12/17/17 [goal of INR 2-3]. 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
[2017-12-16] MEDS: K-DUR PO SCH (10:14)
[2017-12-16] MEDS: DELTASONE PO SCH (10:14)
[2017-12-16] MEDS: ZYLOPRIM PO SCH (10:14)
[2017-12-16] MEDS: SODIUM CHLORIDE FLUSH SYRINGE 10 ML IV SCH (10:15)
[2017-12-16] MEDS: COREG PO SCH (10:15)
--- NOTE | 2017-12-16 13:35 | Progress Note ---
Assessment and Plan Assessment: Acute on chronic HFrEF LV thrombus Cardiomyopathy s/p AICD Acute kidney injury on CKD, now on HD Elevated troponin Hypertension Hepatitis C Plan: The patient is a high cardiovascular risk patient going for a moderate cardiovascular risk procedure (AV fistula placement). He has been medically optimized from a heart failure standpoint. May consider adding ACEI/ARB if okay with nephrology. Patient is advised to follow up with his primary autocutter, Dr. Hale within one week of hospital discharge. The patient has been seen in conjunction with Dr. Joshi who agrees with the assessment and plan of care. - Patient Problems (1) Acute on chronic HFrEF (heart failure with reduced ejection fraction) Current Visit: Yes Status: Acute (2) LV (left ventricular) mural thrombus Current Visit: No Status: Acute (3) Cardiomyopathy Current Visit: Yes Status: Chronic (4) Automatic implantable cardioverter-defibrillator in situ Current Visit: No Status: Chronic (5) Acute kidney injury superimposed on chronic kidney disease Current Visit: No Status: Chronic (6) Elevated troponin Current Visit: No Status: Acute (7) HTN (hypertension) Current Visit: No Status: Chronic Qualifiers: Hypertension type: essential hypertension Qualified Code(s): I10 - Essential (primary) hypertension (8) Thrombocytopenia Current Visit: No Status: Acute (9) Hepatitis C Current Visit: No Status: Chronic Subjective Date of service: 12/16/17 Principal diagnosis: esrd Interval history: The patient is resting in bed. No new complaints. Objective Last Vital Signs Temp 98.3 F 12/16/17 05:31 Pulse 82 12/16/17 06:58 Resp 20 12/16/17 05:31 BP 118/78 12/16/17 06:58 Pulse Ox 100 12/16/17 05:31 - Physical Examination General: No Apparent Distress HEENT: Positive: PERRL, EOMI Neck: Positive: neck supple, trachea midline Cardiac: Positive: Reg Rate and Rhythm, S1/S2 Lungs: Positive: clear to auscultation Neuro: Positive: Grossly Intact Abdomen: Positive: Soft. Negative: Tender Skin: Positive: Clear. Negative: Rash Extremities: Present: edema (trace edema-bilateral lower legs ) - Labs and Meds Coagulation 12/16/17 Range/Units 06:27 PT 25.7 H (12.2-14.9) Sec. INR 2.18 H (0.87-1.13) - Imaging and Cardiology Echo: report reviewed (11/27/17: EF 10-15%, LV apical thrombus, mild AR, mild- moderate MR, moderate TR)
[2017-12-16 14:13] VITALS: BP 115/69
[2017-12-16] MEDS ORDERED: ZESTRIL PO SCH (15:00)
== END 2017-12-16 14:00 | DRG 673 ==
LOC: ED 16:22 → 4A 18:44 → 3A 12-13 20:36
PROVIDERS: ADMIT Internal Medicine; ATTEND Internal Medicine
PROC: 5A1D70Z Performance of Urinary Filtration, Intermittent, Less than 6 Hours Per Day (ICD-10-PCS; principal; 2017-12-08)
PROC: B2141ZZ Fluoroscopy of Right Heart using Low Osmolar Contrast (ICD-10-PCS; 2017-12-08)
PROC: 0JH63XZ Insertion of Tunneled Vascular Access Device into Chest Subcutaneous Tissue and Fascia, Percutaneous Approach (ICD-10-PCS; 2017-12-08)
PROC: 02H633Z Insertion of Infusion Device into Right Atrium, Percutaneous Approach (ICD-10-PCS; 2017-12-08)
PROC: B244ZZZ Ultrasonography of Right Heart (ICD-10-PCS; 2017-12-08)
PROC: 5A1D70Z Performance of Urinary Filtration, Intermittent, Less than 6 Hours Per Day (ICD-10-PCS; 2017-12-09)
PROC: 5A1D70Z Performance of Urinary Filtration, Intermittent, Less than 6 Hours Per Day (ICD-10-PCS; 2017-12-10)
PROC: 5A1D70Z Performance of Urinary Filtration, Intermittent, Less than 6 Hours Per Day (ICD-10-PCS; 2017-12-12)
PROC: 5A1D70Z Performance of Urinary Filtration, Intermittent, Less than 6 Hours Per Day (ICD-10-PCS; 2017-12-15)
DX: N17.9 Acute kidney failure, unspecified (principal); J96.01 Acute respiratory failure with hypoxia; I50.43 Acute on chronic combined systolic (congestive) and diastolic (congestive) heart failure; I13.2 Hypertensive heart and chronic kidney disease with heart failure and with stage 5 chronic kidney disease, or end stage renal disease; I42.9 Cardiomyopathy, unspecified; N18.6 End stage renal disease; M10.9 Gout, unspecified; D69.6 Thrombocytopenia, unspecified; D63.1 Anemia in chronic kidney disease; L03.032 Cellulitis of left toe; B19.20 Unspecified viral hepatitis C without hepatic coma; Z82.49 Family history of ischemic heart disease and other diseases of the circulatory system; Z99.2 Dependence on renal dialysis; Z95.810 Presence of automatic (implantable) cardiac defibrillator; Z79.01 Long term (current) use of anticoagulants
CPT/HCPCS: 36415; 36558; 71045; 77001; 80048; 80074; 82607; 82747; 82962; 83550; 83970; 84100; 84550; 85014; 85018; 85025; 85027; 85045; 85049; 85520; 85610; 85730; 87116; 93970; 96374; C1750; C1751; G8978-GP; G8980-GP; J0690; J1644; J1940; J2250; J3010; J3430; J7030; J7050; J7512